=== PATIENT | male | born 2000 | race Caucasian/White ===

== ENCOUNTER 2023-02-25 21:02 | Emergency (ER) | payer OTHER, MEDICAID, SELFPAY ==
--- NOTE | ~2023-02-25 | XR_ITS ---
EXAMINATION: XR FOOT, LEFT CLINICAL INFORMATION: Injury. COMPARISON: None available. TECHNIQUE: AP, lateral, and oblique views of the left foot. FINDINGS: No acute fractures or malalignment. No significant soft tissue abnormality. No unexpected radiopaque foreign bodies. XR/XR foot LT min 3V IMPRESSION: No acute fractures or malalignment.
[2023-02-25 21:18] VITALS: BP 113/71; PULSE 88; RESP 16; TEMP 36.8; O2SAT 99; BMI 22.8
[2023-02-25 21:35] VITALS: BP 118/64; PULSE 83; RESP 17; TEMP 37.1; O2SAT 98
--- NOTE | 2023-02-25 23:11 | ED_ITS ---
HPI - Extremity Injury (Lower) General Chief Complaint: Extremity Injury, Lower Stated Complaint: Left ankle pain Time Seen by Provider: 02/25/23 21:59 Source: patient Mode of arrival: ambulatory Limitations: no limitations History of Present Illness HPI Narrative: This is a 22-year-old male presenting with complaints of left ankle pain and swelling, patient reports earlier today he was walking and he felt like his ankle went out of place, dislocated and since then has been having pain, swelling, worse with weight-bearing and ambulation better at rest. Range of motion also seems to precipitate pain. Patient denies numbness and tingling, fevers and chills, blunt trauma. Patient did not fall to the ground. No other injury sustained Related Data Allergies Allergy/AdvReac Type Severity Reaction Status Date / Time Unable to Assess Allergy Unverified 02/25/23 22:42 Review of Systems Review of Systems: Constitutional : No Weight loss, No Fever, No Chills, No Fatigue, No Malaise ENT/Mouth : No sore throat, No Rhinorrhea Eyes: No Eye Pain, No Swelling, No Redness Cardiovascular : No Chest Pain, No SOB, No Dyspnea on Exertion, No Orthopnea, No Edema, No Palpitations Respiratory : No Cough, No Sputum, No Wheezing Gastrointestinal : No Nausea, No Vomiting, No Diarrhea, No Constipation, No abdominal Pain, No Hematochezia, No Melena Genitourinary : No Dysuria, No Urinary Frequency, No Hematuria, Musculoskeletal : + joint pain, No Myalgias, + Joint Swelling Skin : No Skin Lesions, No rash Neuro : No Weakness, No Numbness, No Dizziness, No Headache Psych : No Anxiety/Panic, No Depression All other systems reviewed and are negative Yes all other systems are reviewed and are negative [facility] Past Medical History Attestation statement: The following information was validated with the patient. Source: old records reviewed and nursing notes reviewed Social History Social History Advance Directives: No Advance Directives Information Provided: No Physical Exam Vital Signs: Vital Signs: Last Vital Signs Temp 98.7 F 02/25/23 21:35 Pulse 83 02/25/23 21:35 Resp 17 02/25/23 21:35 BP 118/64 02/25/23 21:35 Pulse Ox 98 02/25/23 21:35 O2 Del Method Room Air 02/25/23 21:35 BMI result Body Mass Index 22.8 Vital signs stable Appearance: Alert.? Oriented X3.? No acute distress.? Head: Normocephalic, atraumatic, no step-offs or deformities Eyes: Pupils equal, round and reactive to light.? ENT: Pharynx normal.? Neck: Normal inspection.? Neck supple.? CVS: Normal heart rate and rhythm.? Pulses normal.? Respiratory: No respiratory distress.? Breath sounds normal.? Abdomen: Soft and nontender.? Skin: Skin warm and dry.? Normal skin color.? Normal skin turgor.? Extremities: No lower extremity edema.? No calf ttp. 5/5 strength to bilateral upper and lower extremities 2+ dorsalis pedis, anterior tibialis and posterior tibialis pulses equal bilateral. There is some discomfort with range of motion of left ankle however patient full range of motion to bilateral ankles. No foot drop. Normal sensation distally. Capillary refill less than 2 seconds of bilateral lower extremity toes. No step offs or deformities. Ambulating w/ limp favoring right lower extremity. Neuro: Oriented X 3.? No motor deficit.? No sensory deficit. CN 2-12 intact Course Reevaluation(s) Reevaluation #1: X-ray no acute fractures or malalignment. Patient without allergies will give IM Toradol here for pain will discharge home on same. Will give him an Aircast, crutches and have him follow-up with orthopedics. Educated patient on diagnosis and treatment plan, answered all question, patient verbalizes understanding. At this time patient will be discharged home, advised to return with new or worsening symptoms. Educated on worrisome signs and symptoms and when to return. At this time I feel comfortable discharge home. Time: 23:14 Medical Decision Making Medical Decision Making MDM Narrative: 22-year-old male presents status post rolling his ankle earlier today. Reports pain, swelling. Worse with movement, range of motion and weight-bearing better at rest Physical exam significant for No lower extremity edema.? No calf ttp. 5/5 strength to bilateral upper and lower extremities 2+ dorsalis pedis, anterior tibialis and posterior tibialis pulses equal bilateral. There is some discomfort with range of motion of left ankle however patient full range of motion to bilateral ankles. No foot drop. Normal sensation distally. Capillary refill less than 2 seconds of bilateral lower extremity toes. No step offs or deformities. Ambulating w/ limp favoring right lower extremity. Likely sprain or strain, no signs of neurovascular compromise, threat to [place], septic joint. No distracting injuries, unlikely fracture, dislocation. Plan x-rays Differential Diagnosis Differential Diagnoses: The differential diagnosis associated with the presentation includes Likely sprain or strain, no signs of neurovascular compromise, threat to [place], septic joint. No distracting injuries, unlikely fracture, dislocation. Admission/Observation Consideration of admission/observation: Escalation of care including admission/observation considered No indication Independent Interpretation I performed an independent interpretation of an: Plain X-Ray (XR/XR foot LT min 3V IMPRESSION: No acute fractures or malalignment. ) Radiology Impression Discussion of test interpretation with radiology: I have reviewed the radiologi st's reading. Core Measures AMI core measures followed: Yes Measure exclusions: not indicated Discharge Plan Discharge Clinical Impression: Left ankle sprain Patient Disposition: Home, Self-Care Instructions: Ankle Sprain (ED), Crutch Instructions (ED), R.I.C.E. Treatment (ED) Additional Instructions: Take your medications as prescribed. If you were prescribed antibiotics today, it is important that you take your medication to their entirety, do not skip any doses, do not finish them early. Follow-up with your primary care provider this week. Follow up with the orthopedic team Return to the emergency department with new or worsening symptoms. Such as fevers, chills, chest pain, shortness of breath, nausea, vomiting, dizziness, headache, vision changes, lethargy In case of emergency call 911 XR/XR foot LT min 3V IMPRESSION: No acute fractures or malalignment. ? Toradol has been sent to your pharmacy, you tolerated this well in the department. Please take this as prescribed do not take this with ibuprofen, or other NSAIDs, do not mix this with alcohol. Side effects of this medication including increased risk for bleeding and possible kidney injury. Referrals: [facility] Orth[facility] Surgeons [Provider Group] - 2 days Physician,None [Primary Care Provider] - 2 days
[2023-02-25] MEDS: Ketorolac Tromethamine 15 MG/ML VIAL 30 MG IM (23:26)
== END 2023-02-25 23:47 | disposition home or self-care (01) ==
PROVIDERS: Emergency Provider Emergency Medicine
DX: S93.402A Sprain of unspecified ligament of left ankle, initial encounter (principal); X50.1XXA Overexertion from prolonged static or awkward postures, initial encounter; Y93.01 Activity, walking, marching and hiking; Y92.410 Unspecified street and highway as the place of occurrence of the external cause; Y99.9 Unspecified external cause status
CPT/HCPCS: 73630; 96372; 99283; 99284; J1885

== ENCOUNTER 2023-11-09 21:40 | Emergency (ER) | payer OTHER, MEDICAID, SELFPAY ==
--- NOTE | ~2023-11-09 | XR_ITS ---
EXAMINATION: XR CHEST CLINICAL INFORMATION: Fever COMPARISON: None available. TECHNIQUE: Frontal view of the chest was obtained. FINDINGS: The lungs are clear with no focal consolidation. No evidence of pneumothorax, pulmonary edema, or pleural effusions. The cardiomediastinal silhouette is unremarkable. No acute osseous findings. XR/XR chest 1V IMPRESSION: No acute cardiopulmonary findings.
[2023-11-09 22:28] VITALS: BP 109/64; PULSE 115; RESP 20; TEMP 37.8; O2SAT 99; BMI 25.2
--- NOTE | 2023-11-09 23:02 | MHC.EDTECH ---
Patient rsv/covid swab collected and sent to lab .
[2023-11-09 23:41] LABS: Influenza A PCR NEGATIVE (Negative); Influenza B PCR NEGATIVE (Negative); Resp Syncy Virus RNA Qual PCR NEGATIVE (Negative); SARS COV2 PCR INHOUSE NEGATIVE (Negative)
[2023-11-10 01:58] VITALS: BP 112/60; PULSE 106; RESP 16; TEMP 38; O2SAT 98
[2023-11-10 02:36] LABS: IDNOW Serial# 08D9AD1C; Strep A Nucleic Acid Negative (Negative)
--- NOTE | 2023-11-10 02:39 | ED_ITS ---
HPI - Fever General Chief Complaint: Fever Stated Complaint: fever Time Seen by Provider: 11/10/23 02:15 Source: patient Mode of arrival: ambulatory Limitations: no limitations History of Present Illness HPI Narrative: 23-year-old male came in for evaluation of fever, chills, generalized body ache, runny nose with congestion and coughing. No sick contacts, no recent travel. Related Data Allergies Allergy/AdvReac Type Severity Reaction Status Date / Time No Known Allergies Allergy Verified 11/09/23 22:30 Review of Systems Review of Systems: All other systems are reviewed and are negative Constitutional: Reports as per HPI and Reports no additional constitutional complaints Eyes: Reports as per HPI and Reports no additional eye complaints Reports system reviewed and no additional complaints, except as documented Cardiovascular: Reports as per HPI and Reports no additional cardiovascular complaints Respiratory: Reports as per HPI and Reports no additional respiratory complaints Gastrointestinal: Reports as per HPI and Reports no additional gastrointestinal complaints Genitourinary: Reports no additional female genitourinary complaints Musculoskeletal: Reports no additional musculoskeletal complaints Skin/Breast: Reports system reviewed and no additional complaints, except as docu Psychiatric: Reports no additional psychiatric complaints Endocrine: Reports no additional endocrine complaints Hematologic/Lymphatic: Reports no additional hematologic/lymphatic complaints Allergic/Immunologic: Reports no additional allergic/immunologic complaints Reports system reviewed and no additional complaints, except as documented and Reports Abnormal speech present [facility] Social History Social History Advance Directives: No Advance Directives Information Provided: Yes Physical Exam 2 Vital Signs: Vital Signs: Last Vital Signs Temp 100.4 F 11/10/23 01:58 Pulse 106 H 11/10/23 01:58 Resp 16 11/10/23 01:58 BP 112/60 11/10/23 01:58 Pulse Ox 98 11/10/23 01:58 O2 Del Method Room Air 11/10/23 01:58 BMI result Body Mass Index 25.2 Vital signs have been reviewed and appear to be correct. Blood pressure elevated. Heart rate slightly elevated. Respiratory rate normal. Temperature normal. Oxygen saturation normal. Appearance: Alert. Oriented X3. No acute distress. Head: Normal external exam. Normocephalic. Atraumatic. No [place] signs noted. No raccoon eyes noted Eyes: PERRLA. EOMI. Conjunctiva and sclera normal. Eyelids normal. ENT: TM's Normal. Pharynx normal. Uvula midline. Moist mucous membranes. No trismus noted. No drooling noted. No muffled voice noted. Neck: Normal inspection. Neck supple. FROM. No adenopathy. Thyroid Normal. No meningeal signs. No neck mass noted. CVS: Normal heart rate and rhythm. Heart sound normal. No murmurs noted. Pulses normal throughout. Respiratory: No respiratory distress. Painless inspiration. Breath sounds normal. No wheezes/rales/rhonchi noted. Chest nontender. No accessory muscle usage noted or decreased air movement noted. Abdomen: Soft and nontender. Bowel sounds normal in all 4 quadrants. No distention noted. No organomegaly noted. No visible injury noted. Back: No CVA tenderness. Full range of motion noted. Skin: Skin warm and dry. Normal skin color. Normal skin turgor. No rashes/lesions/lacerations noted. Extremities: No lower extremity edema. Extremities exhibit normal range of motion. Extremities nontender. Neuro: Oriented X 3. Cranial nerve exam: II-XII are grossly intact No motor deficit. No sensory deficit. Reflexes normal. Course Reevaluation(s) Reevaluation #1: Upper respiratory symptoms with fever and chills with generalized body ache, negative chest x-ray, negative for upper respiratory viral infection, no strep throat infection. Will recommend Tylenol/NSAIDs for fever, drink plenty of fluids. Time: 02:42 Medical Decision Making Differential Diagnosis Differential Diagnoses: The differential diagnosis associated with the presentation includes (Pneumonia, strep pharyngitis, viral upper respiratory infection.) Admission/Observation Consideration of admission/observation: Escalation of care including admission/observation considered Lab Data [facility] Lab Attestation statement: I reviewed the patient's lab results. Labs: Lab Results 11/09/23 11/10/23 Range/Units 23:00 02:23 Influenza Type A (PCR) NEGATIVE (Negative) Influenza Type B (PCR) NEGATIVE (Negative) RSV RNA Qual (PCR) NEGATIVE (Negative) SARS-CoV-2 RNA (RT-PCR) NEGATIVE (Negative) S. pyogenes GrpA GAIL Negative (Negative) Independent Interpretation I performed an independent interpretation of an: Plain X-Ray (Chest: No acute intrathoracic pathology.) Radiology Impression Discussion of test interpretation with radiology: I have reviewed the radiologist's reading. Chronic Conditions Patient?s care impacted by: Other (Multiple sclerosis.) Discharge Plan Discharge Clinical Impression: Viral infection Patient Disposition: Home, Self-Care Instructions: Viral Syndrome (ED) Additional Instructions: Take [id number] Tylenol 500 mg every 6 hours if needed for pain or fever you can alternate with ibuprofen 200 mg tablet every 6 hours if needed for fever. Stand Alone Forms: Work/School Release Print Language: Kiswahili
[2023-11-10] MEDS: Ibuprofen 800 MG TABLET PO (03:22)
== END 2023-11-10 04:38 | disposition home or self-care (01) ==
PROVIDERS: Emergency Provider Emergency Medicine
DX: B34.9 Viral infection, unspecified (principal)
CPT/HCPCS: 0241U; 71045; 87651; 99283

== ENCOUNTER 2024-06-28 10:06 | Outpatient (AMB) | payer OTHER, SELFPAY ==
--- NOTE | 2024-06-28 10:13 | AM.OFFWIN_ITS ---
Intake Vital Signs 06/28/24 10:24 Height 5 ft 8 in Weight 164 lb BMI 24.9 BP 120/82 Pulse 122 H Pulse Source Pulse Oximeter Temp 99.4 F Temp Source Oral Pulse Oximetry (%) 98 Oxygen Delivery Method Room Air Intake Visit Reasons: REGULATORY MANAGER Fever, Body ache Intake Note: Patient here for high fevers, body pain and also had a fall yesterday on stairs and has severe pain. Patient Tobacco Use Status: Never used Tobacco Allergies No Known Allergies Allergy (Verified 06/28/24 10:26) Do you need a note to return to daycare/school/sports/work: Yes HPI REGULATORY MANAGER Fever, Body ache HPI Details This note is constructed using voice recognition software. While every effort has been made to ensure accuracy, aquatic laborer errors may have been inc luded. The patient is a 23 year old male with history of MS who presents to the clinic today with headache, sore throat, body ache, and a fall yesterday with inability to feel his hands. He reports that the pain is in his mid to lower back, and reports it to be ?severe?. Typically he does not have any difficulty with ambulation, however after the fall he has had some difficulty and required some additional assistance. He presents today with his brother and his sister, who are providing assistance and translation as needed. He reports that he 1st fell ill, went to get a plate of food, and then had a fall. He is not tested for anything, feels that he has a high fever, but did not check his temperature. He has not taken anything to make himself feel better. He and his siblings lexii rangel to come to the walk-in, as it was closer to home, and did not involve driving all the way to the emergency room, however they request transport to the emergency room. [facility] Social History Patient Tobacco Use Status: Never used Tobacco Review of Systems Const All systems reviewed & are unremarkable except as noted in HPI and below Physical Exam Vital Signs: Last Vital Signs Temp 99.4 F 06/28/24 10:24 Pulse 122 H 06/28/24 10:24 BP 120/82 06/28/24 10:24 Pulse Ox 98 06/28/24 10:24 Oxygen Delivery Method Room Air 06/28/24 10:24 BMI result Body Mass Index 24.9 Const Other: Patient minimally verbal at this time, per family this is abnormal. General: cooperative, no acute distress and well developed HEENT Head: Yes normal to inspection Ears: hearing grossly normal bilaterally General nose exam: Normal external nose present Face and sinus: Yes normal facial exam Eyes General: appearance normal, both eyes and all related structures Neck Neck: Yes normal visual inspection and Yes full ROM Resp Effort & Inspection: normal respiratory effort Auscultation: clear to auscultation bilaterally Cardio Rate: regular rate Rhythm: regular rhythm Heart sounds: normal S1 and S2 Back/Spine/Pelvis Other: Pt declines back exam/turning on bed to examine due to pain. Hand grasps equal bilateral and strong. Strength 5/5 x 4 extremities. No nuchal rigidity. Skin General skin exam: no rashes or lesions noted Extrem General: Yes normal to inspection Assessment & Plan Assessment & Plan (1) Back pain: Code(s): M54.9 - Dorsalgia, unspecified Qualifiers: Back pain location: low back pain Chronicity: acute Back pain laterality: midline Sciatica presence: without sciatica Qualified Code(s): M54.50 - Low back pain, unspecified Plan: Likely related to recent fall, however unable to determine with history of MS if this is contributing to the worsening pain. Given extent of pain, transferred to the emergency room pending. (2) Multiple sclerosis: Code(s): G35 - Multiple sclerosis Plan: Chronic history, with typical full mobility, now with increased pain, difficulty with ambulation after a fall. (3) Fever: Code(s): R50.9 - Fever, unspecified Qualifiers: Fever type: unspecified Qualified Code(s): R50.9 - Fever, unspecified Plan: Likely URI, however testing not performed today as patient is pending transport to the emergency room. (4) Bilateral hand numbness: Code(s): R20.0 - Anesthesia of skin Plan: Etiology unclear. Patient's fall involves pain to the lower back, however does have history of MS. Given symptoms, patient is pending transfer to the emergency room for thorough evaluation. Plan See above for full details and plan. Coding Level of Care Code New Pt Level 4 (72092) Diagnoses Acute midline low back pain without sciatica M54.50 Back pain location: low back pain Chronicity: acute Back pain laterality: midline Sciatica presence: without sciatica Multiple sclerosis G35 Fever, unspecified fever cause R50.9 Fever type: unspecified Bilateral hand numbness R20.0
[2024-06-28 10:24] VITALS: BP 120/82; PULSE 122; TEMP 37.4; O2SAT 98; BMI 24.9
== END 2024-06-28 11:30 | disposition home or self-care (01) ==
PROVIDERS: Visit Provider Registered Nurse
DX: M54.50 Low back pain, unspecified (principal); G35 Multiple sclerosis; R50.9 Fever, unspecified; R20.0 Anesthesia of skin

== ENCOUNTER → 2024-06-28 10:06 | Outpatient (BNVA) | payer OTHER, SELFPAY | PROVIDERS: Visit Provider Registered Nurse ==

== ENCOUNTER 2024-06-28 11:29 | Emergency (ER) | payer OTHER, SELFPAY ==
[2024-06-28] VITALS (7 sets, daily range): BP systolic 94–144; BP diastolic 45–88; PULSE 100–124; RESP 16–18; TEMP 37–39.4; O2SAT 95–99; BMI 26.9
--- NOTE | ~2024-06-28 | XR_ITS ---
EXAMINATION: XR THORACIC SPINE CLINICAL INFORMATION: low back pain s/p fall COMPARISON: None available. TECHNIQUE: 3 views of the thoracic spine were obtained. FINDINGS: No scoliosis. Normal kyphosis. Normal bone mineralization. No fracture, dislocation, subluxation, or suspicious bone lesion. No compression deformity. Disc spaces are preserved. Alignment is anatomic. Facets are normally aligned. No soft tissue abnormalities. Imaged lungs clear. XR/XR thoracic spine 3V IMPRESSION: No acute findings thoracic spine. Electronically signed by: Gagan Taveras MD 06/28/2024 01:59 PM EST
--- NOTE | ~2024-06-28 | XR_ITS ---
EXAMINATION: XR CHEST CLINICAL INFORMATION: fever COMPARISON: 11/10/2023. TECHNIQUE: Frontal view of the chest was obtained. FINDINGS: Cardiac, hilar, and mediastinal contours are normal. Lungs are clear bilaterally. There is no osseous or soft tissue abnormality. XR/XR chest 1V IMPRESSION: Normal chest. Electronically signed by: Gagan Taveras MD 06/28/2024 01:56 PM [facility]
--- NOTE | ~2024-06-28 | XR_ITS ---
EXAMINATION: XR LUMBOSACRAL SPINE CLINICAL INFORMATION: low back pain s/p fall COMPARISON: None available. TECHNIQUE: Three views of the lumbosacral spine. FINDINGS: Trace levoconvex scoliosis, possibly positional. Normal lordosis. Normal bone mineralization. No fracture, dislocation, subluxation, or suspicious bone lesion. Disc spaces are preserved. Alignment is anatomic. Facets are normally aligned. Imaged sacrum and SI joints appear normal. No soft tissue abnormalities. XR/XR lumbar spine 2-3V IMPRESSION: Essentially normal radiographs lumbar spine. Electronically signed by: Gagan Taveras MD 06/28/2024 01:58 PM [facility]
--- NOTE | 2024-06-28 11:56 | ECG_ITS ---
Test Reason : Fall Blood Pressure : / mmHG Vent. Rate : 123 BPM Atrial Rate : 123 BPM P-R Int : 170 ms QRS Dur : 082 ms QT Int : 278 ms P-R-T Axes : 052 055 038 degrees QTc Int : 398 ms Sinus tachycardia Nonspecific T wave abnormality Abnormal ECG No previous ECGs available Referred By: Leslie Will Electronically Signed By:David Hilliard
--- NOTE | 2024-06-28 12:08 | ED_ITS ---
HPI - Fever General Chief Complaint: Fever Stated Complaint: HIGH FEVER,FALL T-1,DIZZY PER EMS Time Seen by Provider: 06/28/24 11:46 Source: patient, family, EMS, RN notes reviewed and old records reviewed Mode of arrival: EMS History of Present Illness ED Provider: Leslie Will PA-C HPI Narrative: 23-year-old male Tajik speaking with a past medical history of MS presenting to the ED via EMS from urgent care complaining of headache, myalgias, fever, cough, and back pain s/p mechanical trip and fall yesterday. Patient states he started feeling unwell yesterday and then had mechanical trip and fall on 3 steps landing on knee, denies head trauma or LOC. Denies direct back injury. States after fall felt fine and later developed back pain, nonradiating. Does report paresthesias to hands/feet. Denies CP/SOB, abdominal pain, nausea/vomiting, dysuria/hematuria, incontinence/retention, travel. Does admit to sick contacts at work. Denies taking any medication today Related Data Allergies Allergy/AdvReac Type Severity Reaction Status Date / Time No Known Allergies Allergy Verified 06/28/24 11:55 Review of Systems 2 Review of Systems: Yes all other systems are reviewed and are negative Constitutional: Constitutional: Reports as per HPI Neurologic: Denies Abnormal speech present [facility] Past Medical History Attestation statement: The following information was validated with the patient. Source: old records reviewed Social History Social History Patient Tobacco Use Status: Never used Tobacco Smoked in Last 30 Days: No Use of substances other than those prescribed or required for medical reasons: No Advance Directives: No Advance Directives Information Provided: Yes Do you have a plan to hurt others: No Plan Physical Exam 2 Vital Signs: Vital Signs: Last Vital Signs Temp 99.5 F 06/28/24 14:11 Pulse 107 H 06/28/24 14:33 Resp 17 06/28/24 14:33 BP 97/48 L 06/28/24 14:33 Pulse Ox 98 06/28/24 14:33 O2 Del Method Room Air 06/28/24 14:33 BMI result Body Mass Index 26.9 Const: General: cooperative, healthy appearing and no acute distress O rientation/consciousness: patient oriented x3 Limitations: no limitations HEENT: Head: Yes normal to inspection and Yes atraumatic Ears: hearing grossly normal bilaterally General nose exam: Normal external nose present Face and sinus: Yes normal facial exam Mouth: Normal oral and palatal mucosa present and no drooling Throat: Yes posterior oropharynx normal, Yes tonsils normal and Yes uvula midline Eyes: General: appearance normal, both eyes and all related structures P upils: Equal, round and reactive pupils present EOM: EOMs intact bilaterally Neck: Neck: Yes normal visual inspection and Yes no meningeal signs Resp: Effort & Inspection: normal respiratory effort and no respiratory distress Auscultation: clear to auscultation bilaterally, no crackles and no wheezes Cardio: Rate: regular rate Heart sounds: S1 normal heart sound present and S2 normal heart sound present GI: Inspection: Yes normal to inspection Palpation (GI): Soft to palpation, nontender, no guarding and not rigid : General: Yes no CVA tenderness Back/Spine/Pelvis: Other: No midline cervical/thoracic/lumbar spinous tenderness/step-off or deformity. Back pain not reproducible on exam. No erythema/ecchymosis or flail chest Back: no CVA tenderness Skin: Rashes: no rashes Wounds: no wounds Neuro: General: patient oriented x3, tone normal, moves all extremities, no meningeal signs, no focal motor deficits and CN's II-XI intact bilaterally C ranial nerves: Yes CN's II-XII intact bilaterally, Yes Equal, round and reactive pupils present and Yes Bilaterally intact EOM present Cognition (Neuro): n ormal cognition Speech: No Abnormal speech present Gait exam (Neuro): N ormal gait present Motor exam (neuro): 5/5 motor strength present throughout Extrem: General: Yes normal to inspection Course Course Course Narrative: -1412--no leukocytosis. Labs otherwise reassuring. Troponin negative. -COVID-19 positive XR chest 1V IMPRESSION: Normal chest. XR lumbar spine 2-3V IMPRESSION: Essentially normal radiographs lumbar spine. No acute findings thoracic spine. XR lumbar spine 2-3V IMPRESSION: Essentially normal radiographs lumbar spine. > no indication of sepsis at this time, viral etiology confirmed as suspected -on re-evaluation patient reports symptomatic improvement. Well-appearing. Ambulated in the ED with steady gait without difficulty. Feels safe for discharge home at this time. Results discussed with patient including worrisome signs and symptoms and strict return precautions, and when to return to the emergency department. They verbalized understanding and feel safe for discharge at this time. Medications Administered Discontinued Medications Generic Name Dose Route Start Last Admin Trade Name Timothy PRN Reason Stop Dose Admin Acetaminophen 975 mg 06/28/24 12:06 06/28/24 12:16 Acetaminophen 325 Mg Tablet PO 06/28/24 12:07 975 mg ONCE ONE Administration Ceftriaxone Sodium 1 gm 06/28/24 12:06 06/28/24 12:15 Ceftriaxone Sodium 1 Gm Vial IVPUSH 06/28/24 12:07 1 gm ONCE ONE Administration Sodium Chloride 1,000 mls @ 999 mls/hr 06/28/24 12:15 06/28/24 13:54 Ns IV 06/28/24 13:15 Infused .Q1H1M DELMI Infusion Sodium Chloride 1,000 mls @ 999 mls/hr 06/28/24 12:30 06/28/24 13:54 Ns IV 06/28/24 13:30 Infused .Q1H1M DELMI Infusion Sodium Chloride 1,000 mls @ 999 mls/hr 06/28/24 14:00 06/28/24 14:33 Ns IV 06/28/24 15:00 Infused .Q1H1M DELMI Infusion Medical Decision Making Medical Decision Making MDM Narrative: 23-year-old male Tajik speaking with a past medical history of MS presenting to the ED via EMS from urgent care complaining of headache, myalgias, fever, cough, and back pain s/p mechanical trip and fall yesterday. On exam febrile, tachycardic likely from fever, NAD/nontoxic appearing, no midline spinous tenderness throughout or red flag symptoms. No focal neuro deficits. Back pain not reproducible. Lungs CTA. Concern for viral illness vs MSK back pain/strain. Rule out pneumonia/other infectious etiology. Low suspicion for fracture, cauda equina/cord compression, intra-abdominal pathology, epidural abscess. MS flare on differential. Plan: EKG, labs, UA, CXR, viral studies, rapid strep, IVF, empiric IV antibiotics, re-evaluate Please refer to course for remaining clinical decision making, interpretation of labs/imaging results, and discussions with consultants and/or family members. Differential Diagnosis Differential Diagnoses: The differential diagnosis associated with the presentation includes As above Admission/Observation Consideration of admission/observation: Escalation of care including admission/observation considered Consult Healthcare Provider Management of the patient was discussed with: Hospitalist Lab Data MDM Lab Attestation statement: I reviewed the patient's lab results. 06/28/24 12:12 06/28/24 12:12 Labs: Lab Results 06/28/24 06/28/24 Range/Units 12:12 12:14 WBC 5.9 (4.8-10.8) X10*3/uL RBC 5.11 (4.60-5.80) X10*6/uL Hgb 14.9 (14.0-18.0) g/dl Hct 43.6 (42.0-52.0) % MCV 85.3 (80.0-98.0) fL MCH 29.2 (27.0-33.0) pg MCHC 34.2 (31.0-36.0) g/dl RDW 13.2 (11.0-16.0) % Plt Count 213 (160-400) X10*3/uL MPV 10.9 (9.4-12.4) fL Immature Gran % (Auto) 0.3 (0.0-0.4) % Neut % (Auto) 78.4 H (45-73) % Lymph % (Auto) 9.1 L (20-40) % Callaway % (Auto) 11.8 H (2-11) % Eos % (Auto) 0.2 (0-4) % Baso % (Auto) 0.2 (0-2) % Lymph # (Auto) 0.5 L (1.2-4.9) X10*3/uL Callaway # (Auto) 0.7 (0.1-1.2) X10*3/uL Eos # (Auto) 0.0 (0.0-0.4) X10*3/uL Baso # (Auto) 0.0 (0.0-0.2) X10*3/uL Abs Immat Gran (auto) 0.02 (0.00-0.03) X10*3/uL Absolute Neuts (auto) 4.6 (2.0-8.3) x10*3/uL Absolute Nucleated RBC 0.000 (0.0-0.012) X10*3/uL Nucleated RBC % (auto) 0.0 (0.0-0.2) /100WBC PT 13.9 H (10.9-12.4) SEC INR 1.2 H (0.9-1.1) Sodium 141 (135-145) mmol/L Potassium 3.6 (3.3-5.1) mmol/L Chloride 106 (96-108) mmol/L Carbon Dioxide 26 (22-29) mmol/L Anion Gap 13 (12-20) BUN 11 (9-16) mg/dL Creatinine 0.90 (0.5-1.4) mg/dL Estim Creat Clear Calc 125.6 Estimated GFR > 60 Random Glucose 99 (60-115) mg/dL Lactic Acid 1.3 (0.5-2.0) mmol/L Calcium 8.9 (8.4-10.2) mg/dL Magnesium 1.7 (1.6-2.6) mg/dL Total Bilirubin 0.8 (0.0-1.0) mg/dL AST 30 (5-37) U/L ALT 47 H (0-40) U/L Alkaline Phosphatase 86 (39-117) U/L Troponin I High Sens < 2.7 (<3.5-35.0) ng/L Total Protein 7.4 (6.5-8.0) g/dL Albumin 4.4 (3.5-5.0) g/dL Influenza Type A (PCR) NEGATIVE (Negative) Influenza Type B (PCR) NEGATIVE (Negative) RSV RNA Qual (PCR) NEGATIVE (Negative) SARS-CoV-2 RNA (RT-PCR) POSITIVE A (Negative) S. pyogenes GrpA GAIL Negative (Negative) Independent Interpretation I performed an independent interpretation of an: EKG and Plain X-Ray Radiology Impression Discussion of test interpretation with radiology: I have reviewed the radiologist's reading. Independent Historian Clinical information obtained from an independent historian. History obtained from or confirmed by: EMS and Other (siblings) External Record Review External record reviewed: Inpatient record, Office record, Outpatient record, Prior outpatient labs, Prior outpatient radiology, Primary care record and Outside ED record Tests considered The following testing was considered but not selected: As above Prescription Management I considered prescription management with: Pain Medication and Antibiotic Chronic Conditions Patient?s care impacted by: Other (MS) Social Determinants Patient?s care significantly limited by Social Determinants of Health including: Other Social Determinant of Health Discharge Plan Discharge Clinical Impression: COVID-19 Patient Disposition: Still a Patient Instructions: COVID-19 (Coronavirus Disease 2019) (ED) Additional Instructions: YOU HAVE COVID-19 At this time you will be okay for discharge. Please self isolate for 5 days. Do not expose yourself to others. You may not go to work or school. Please continue to follow cold instructions and wash your hands frequently. You may take Tylenol / Motrin as directed on the bottle for pain or fever. If you have constant or persistent shortness of breath, fever unresolved with medications, chest pain, or your unable to eat or drink please return to the ED CDC Guidelines for home isolation: - Stay away from others - WEAR A MASK if you are sick AND STAY HOME - Cover your mouth and nose with a tissue when you cough or sneeze. Dispose of tissues in a lined trash can and wash your hands immediately with soap and water for at least 20 seconds. If soap and water are not available, clean hands with alcohol-based hand finisher screwdown that contains at least 60% alcohol. - Clean your hands often with soap and water for at least 20 seconds - Avoid touching your eyes, nose and mouth with unwashed hands - Do not share dishes, drinking glasses, cups, eating utensils, towels, or bedding with other people in your home. After using these items, wash them thoroughly with soap and water or put in the tank truck milk receiver. - Clean high-touch surfaces in your isolation area ( sick room and bathroom) every day; let a caregiver clean and disinfect high-touch surfaces in other areas of the home. Clean the area or item with soap and water or another detergent if it is dirty. Then, use a household disinfectant. - Limit contact with pets and animals: If you must care for a pet, wash your hands before and after interacting with them) Referrals: Physician,Unknown J [Primary Care Provider] - 1 week Print Language: Tajik
[2024-06-28] MEDS: 0.9 % Sodium Chloride 1,000 ML 999 ML IV ×3 (12:11→13:59)
[2024-06-28] MEDS: cefTRIAXone sodium 1 GM VIAL IVPUSH (12:15)
[2024-06-28] MEDS: Acetaminophen 325 MG TABLET 975 MG PO (12:16)
[2024-06-28 12:25] LABS: MANUAL DIFF FLAG NO
[2024-06-28 12:29] LABS: Basophils Percent Auto 0.2 % (0-2); Eosinophils Percent Auto 0.2 % (0-4); Hematocrit 43.6 % (42.0-52.0); Hemoglobin 14.9 g/dl (14.0-18.0); Imm Gran Abs Auto 0.02 X10*3/uL (0.00-0.03); Imm Gran Pct Auto 0.3 % (0.0-0.4); Lymphocytes Absolute Auto 0.5 X10*3/uL (1.2-4.9); Lymphocytes Percent Auto 9.1 % (20-40); Mean Corpuscular HGB Conc 34.2 g/dl (31.0-36.0); Mean Corpuscular Hemoglobin 29.2 pg (27.0-33.0); Mean Corpuscular Volume 85.3 fL (80.0-98.0); Mean Platelet Volume 10.9 fL (9.4-12.4); Monocytes Absolute Auto 0.7 X10*3/uL (0.1-1.2); Monocytes Percent Auto 11.8 % (2-11); Neutrophils Absolute Auto 4.6 x10*3/uL (2.0-8.3); Neutrophils Percent Auto 78.4 % (45-73); Platelet Count 213 X10*3/uL (160-400); Red Blood Count 5.11 X10*6/uL (4.60-5.80); Red Cell Distribution Width 13.2 % (11.0-16.0); White Blood Count 5.9 X10*3/uL (4.8-10.8)
[2024-06-28 12:33] LABS: INTERNATIONAL NORM RATIO 1.2 (0.9-1.1); Prothrombin Time 13.9 SEC (10.9-12.4)
--- NOTE | 2024-06-28 12:34 | PC.NURSE ---
Pt presents to ED from home via EMS, has hx of MS. 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 Is still able to walk, move all extremities and urinate as normal. Also reports feeling sick since yesterday morning, noted to have oral fever of 103 here. Denies any SOB, cough, N/V/D. No head hit, LOC or blood thinner use. Alert and oriented, breathing even and unlabored, skin hot. Sinus tach on monitor. Sepsis alert called by provider and orders followed
[2024-06-28 12:41] LABS: IDNOW Serial# 08D9AD1C
[2024-06-28 12:42] LABS: Strep A Nucleic Acid Negative (Negative)
[2024-06-28 12:43] LABS: Lactic Acid 1.3 mmol/L (0.5-2.0)
[2024-06-28 12:44] LABS: Alanine Aminotransferase 47 U/L (0-40); Albumin Level 4.4 g/dL (3.5-5.0); Alkaline Phosphatase 86 U/L (39-117); Anion Gap 13 (12-20); Aspartate Amino Transferase 30 U/L (5-37); Bilirubin Total 0.8 mg/dL (0.0-1.0); Blood Urea Nitrogen 11 mg/dL (9-16); Calcium 8.9 mg/dL (8.4-10.2); Carbon Dioxide 26 mmol/L (22-29); Chloride 106 mmol/L (96-108); Creatinine Clr Calc Pharmacy 125.6; Estimated Glomerular Filt Rate > 60; Glucose Random 99 mg/dL (60-115); Magnesium 1.7 mg/dL (1.6-2.6); Potassium 3.6 mmol/L (3.3-5.1); Sodium 141 mmol/L (135-145); Total Protein 7.4 g/dL (6.5-8.0)
[2024-06-28 12:49] LABS: Troponin-I High Sensitivity < 2.7 ng/L (<3.5-35.0)
[2024-06-28 13:08] LABS: Influenza A PCR NEGATIVE (Negative); Influenza B PCR NEGATIVE (Negative); Resp Syncy Virus RNA Qual PCR NEGATIVE (Negative); SARS COV2 PCR INHOUSE POSITIVE (Negative)
--- NOTE | 2024-06-28 13:59 | PC.NURSE ---
Provider aware of BP, another liter of fluids started
== END 2024-06-28 15:28 | disposition home or self-care (01) ==
PROVIDERS: Physician Assistant; Emergency Provider Student in an Organized Health Care Education/Training Program
DX: U07.1 COVID-19 (principal); R50.9 Fever, unspecified; R05.9 Cough, unspecified; R79.1 Abnormal coagulation profile; G35 Multiple sclerosis
CPT/HCPCS: 0241U; 71045; 72072; 72100; 80053; 83605; 83735; 84484; 85025; 85610; 87040; 87651; 93005; 96361; 96374; 99284; 99285; J0696

== ENCOUNTER → 2024-06-28 11:56 | Outpatient (BNV) | payer OTHER, SELFPAY | PROVIDERS: Emergency Provider Student in an Organized Health Care Education/Training Program; Visit Provider Internal Medicine Cardiovascular Disease | DX: R00.0 Tachycardia, unspecified (principal); R94.31 Abnormal electrocardiogram [ECG] [EKG] | CPT/HCPCS: 93010 ==

== ENCOUNTER → 2024-06-28 12:06 | Outpatient (BNV) | payer OTHER, SELFPAY | PROVIDERS: Emergency Provider Student in an Organized Health Care Education/Training Program; Visit Provider Radiology Diagnostic Radiology | DX: M54.50 Low back pain, unspecified (principal); R50.9 Fever, unspecified | CPT/HCPCS: 71045; 72072; 72100 ==

== ENCOUNTER 2024-09-17 11:06 | Outpatient (AMB) | payer OTHER, SELFPAY ==
[2024-09-17 12:33] VITALS: BP 118/70; PULSE 102; TEMP 37.2; O2SAT 98
--- NOTE | 2024-09-17 12:33 | AM.OFFWIN_ITS ---
Intake Vital Signs 09/17/24 12:33 Height 5 ft 8 in BP 118/70 Blood Pressure Location Lt brachial Position Sitting Pulse 102 H Pulse Source Pulse Oximeter Temp 99.0 F Temp Source Oral Pulse Oximetry (%) 98 Intake Visit Reasons: EP Headache, cough, sore throat Intake Note: pt is here for cough, headache for weeks, and congestion Patient Tobacco Use Status: Never used Tobacco Allergies No Known Allergies Allergy (Verified 09/17/24 12:33) Do you need a note to return to daycare/school/sports/work: Yes HPI HPI Comments History of Present Illness Details 23 y/o male patient who presents to the walk in clinic with c/o URI symptoms x 3 days. He reports cough, fevers, Body aches and headaches. [facility] Medical History (Updated 09/17/24 @ 13:20 by Samra Cook NP) Cough Acute respiratory disease Social History Patient Tobacco Use Status: Never used Tobacco Review of Systems Const All systems reviewed & are unremarkable except as noted in HPI and below Physical Exam Vital Signs: Last Vital Signs Temp 99.0 F 09/17/24 12:33 Pulse 102 H 09/17/24 12:33 BP 118/70 09/17/24 12:33 Pulse Ox 98 09/17/24 12:33 Const General: cooperative and no acute distress Nutritional Appearance: obese Orientation/consciousness: patient oriented x3 HEENT Head: Yes normocephalic Ears: external ears normal and TM abnormal obstructed by cerumen bilateral General nose exam: Nasal discharge present Face and sinus: Yes sinuses nontender Mouth: moist mucous membranes Throat: Yes uvula midline Resp Effort & Inspection: normal respiratory effort, able to speak in complete sentences and Actively coughing Auscultation: clear to auscultation bilaterally, no crackles, no rales, no rhonchi and no wheezes Cardio Heart sounds: S1 normal heart sound present and S2 normal heart sound present Neuro General: patient oriented x3 Assessment & Plan Assessment & Plan (1) Acute respiratory disease: Code(s): J06.9 - Acute upper respiratory infection, unspecified Plan: Ordered SARs OTC cough medicines Acetaminophen for pain relief Rest and hydrate well. (2) Cough: Code(s): R05.9 - Cough, unspecified Qualifiers: Cough type: subacute Qualified Code(s): R05.2 - Subacute cough Plan: Ordered SARs OTC cough medicines Acetaminophen for pain relief Rest and hydrate well. Orders: Orders SARS-CoV2/FLU/RSV Today J06.9 - Acute upper respiratory infection, unspecified Medications: New benzonatate 100 mg PO TID 90 caps 0RF R05.9 - Cough, unspecified dextromethorphan polistirex ER ([facility] 12 hour) 10 mL PO Q12H 89 mL 0RF cough J06.9 - Acute upper respiratory infection, unspecified Coding Level of Care Code Est Pt Level 4 (26752) Diagnoses Acute respiratory disease J06.9 Subacute cough R05.2 Cough type: subacute Time Spent (min) 20
--- OUTSIDE RECORDS SUMMARY | 2024-09-17 12:44 | XMS_ITS | Referral Summary ---
Author Organization [facility] Address [address] [place] [address] Care Team Providers Care Adoption Manager Name Role Phone Alicia Lui MD Primary Care Provider [phone] Encounters Date Type Department Care Team Description 09/13/2024 11:00 AM EST Office Visit [facility] [address] [place] [phone] Manager Games: Sirena Salomon MD Multiple sclerosis ([facility]) (Primary Dx) 09/05/2024 8:30 AM EST Infusion [facility] [address] [place] [address] Shubham Arnold MD PhD Mago Henderson RN Multiple sclerosis ([facility]) (Primary Dx) from Last 3 Months Allergies No known active allergies Medications meclizine (ANTIVERT) 25 mg tablet Take 1 tablet (25 mg total) by mouth 3 times a day as needed for dizziness. 30 tablet 09/24/2022 Active cholecalciferol (VITAMIN D3) 2,000 unit capsule Take 1 capsule (2,000 Units total) by mouth once a day. 30 capsule 11 09/13/2024 Active Active Problems Problem Noted Date Diagnosed Date Multiple sclerosis 01/21/2023 Social History Tobacco Use Types Packs/Day Years Used Date Smoking Tobacco: Never Smokeless Tobacco: Never Tobacco Cessation:Counseling Given: Not Answered Sex and Gender Information Value Date Recorded Sex Assigned at Male 08/29/2024 4:37 PM EST Legal Sex Male 2:13 PM EST Gender Identity Male 08/29/2024 4:37 PM EST Sexual Orientation Straight 08/29/2024 4: 37 PM EST Last Filed Vital Signs Vital Sign Reading Time Taken Comments Blood Pressure 125/82 09/13/2024 11:01 AM EST Pulse 91 09/13/2024 11:01 AM EST Temperature 36.8 ??C (98.2 ??F) 09/05/2024 10:[address] Respiratory Rate 16 09/05/2024 10:03 AM EST Oxygen Saturation 98% 09/05/2024 10:03 AM EST Inhaled Oxygen Concentration - - Weight 78.7 kg (173 lb 6.3 oz) 09/05/2024 8:40 A M EST Height 172.7 cm (5' 8 ) 05/24/2024 11:46 AM EDT Body Mass Index 26.36 05/24/2024 11:46 AM EDT Plan of Treatment Upcoming Encounters Date Type Department Care Team (Late st Contact Info) Description 12/06/2024 11:00 AM EDT Office Visit [facility] [address] [place] [address] Manager Games: Sirena Salomon MD [address] [place] [address] 03/04/2025 8:30 AM EDT Infusion [facility] [address] [place] [address] Shubham Arnold MD PhD [address] [place] [address] Procedures * Due to [place] state law, this organization might not be sharing negative HIV tests. Procedure Name Priority Date/Time Associated Diagnosis Comments MRI THORACIC SPINE W WO CONTRAST Routine 06/18/2024 6:50 PM EST Multiple sclerosis (HCC) MRI BRAIN W WO CONTRAST Routine 06/18/2024 6:10 PM EST Multiple sclerosis (HCC) MRI CERVICAL SPINE W WO CONTRAST Routine 06/18/2024 5:30 PM EST Multiple sclerosis (HCC) HEPATITIS PANEL, ACUTE STAT 09/24/2022 4:24 PM EST from Last 3 Months or Most Recently Relevant to Health Maintenance Results * Due to [place] state law, this organization might not be sharing negative HIV tests. * MRI thoracic spine with and without contrast (06/18/2024 6:50 PM EST) Anatomical Region Laterality Modality Spine, T-spine Magnetic Resonan ce 06/18/2024 6:10 PM EST Impressions 06/20/2024 7:01 AM EST No change diffuse confluent T-2/flair hyperintense lesions scattered throughout the thoracic cord especially from T6 through T12. ??None of the lesions enhances following the administration of gadolinium. If this radiology report contains a blank impression section, it is an incomplete radiology report. ??Please contact the interpreting radiologist or applicable radiology division as soon as possible to obtain the completed interpretation. ? Workstation ID: [id number] Narrative 06/20/2024 7:01 AM EST EXAMINATION: MRI THORACIC SPINE W WO CONTRAST INDICATION: Multiple sclerosis - demyelinating disease, follow up TECHNIQUE: Imaging done on an 3 Nichelle magnet system. The sequences obtained include sagittal T-1, T-2 and ??STIR and axial T2. ??Following the administration of gadolinium, sagittal and axial T1-weighted images were performed. ?? Dose: 0.1 mmol per kilogram Dotarem COMPARISON: 12/16/2022. FINDINGS: No change diffuse confluent T-2/flair hyperintense lesions scattered throughout the thoracic cord especially from T6 through T12. ??None of the lesions enhances following the administration of gadolinium. There is anatomic alignment and no evidence of fracture or subluxation. Normal bone marrow signal is seen within the vertebral bodies. ??Disc spaces are maintained. The thoracic spinal canal is patent. ??There is no evidence of disc herniation or spinal stenosis. Resulting Agency Comment [id number] Procedure Note Domenico Pereira MD - 06/20/2024 EXAMINATION: MRI THORACIC SPINE W WO CONTRAST INDICATION: Multiple sclerosis - demyelinating disease, follow up TECHNIQUE: Imaging done on an 3 Nichelle magnet system. The sequences obtained includesagittal T-1, T-2 and STIR and axial T2. Following the administration ofgadolinium, sagittal and axial T1-weighted images were performed. Dose: 0.1 mmol per kilogram Dotarem COMPARISON: 12/16/2022. FINDINGS: No change diffuse confluent T-2/flair hyperintense lesions scatteredthroughout the thoracic cord especially from T6 through T12. None of thelesions enhances following the administration of gadolinium. There is anatomic alignment and no evidence of fracture or subluxation. Normal bone marrow signal is seen within the vertebral bodies. Discspaces are maintained. The thoracic spinal canal is patent. There is no evidence of discherniation or spinal stenosis. IMPRESSION: No change diffuse confluent T-2/flair hyperintense lesions scatteredthroughout the thoracic cord especially from T6 through T12. None of thelesions enhances following the administration of gadolinium. If this radiology report contains a blank impression section, it is anincomplete radiology report. Please contact the interpreting radiologistor applicable radiology division as soon as possible to obtain thecompleted interpretation. Workstation ID: [id number] us Shubham Arnold MD PhD IMG MRI PROCEDURES Minerva l Result * MRI Brain with and without Contrast (06/18/2024 6:10 PM EST) Anatomical Region Laterality Modality Head and Neck Magnetic Resonan ce 06/18/2024 5:30 PM EST Impressions 06/19/2024 11:45 PM EST Compared to the prior MRI of 12/18/2022, multiple new or enlarging white matter lesions, including those detailed above. No restricted diffusion or enhancing lesion. ??(Yellow alert) A(n) Yellow actionable finding has been communicated to the ordering or responsible provider via the [employer] [place] system on 06/19/2024. ??Receipt of this communication by the responsible provider will be documented in [employer] [place] upon receiving acknowledgement if applicable, Message ID [id number]. If this radiology report contains a blank impression section, it is an incomplete radiology report. ??Please contact the interpreting radiologist or applicable radiology division as soon as possible to obtain the completed interpretation. ? Workstation ID: [id number] Narrative 06/19/2024 11:45 PM EST MRI BRAIN WITH CONTRAST TECHNIQUE: MR images of the brain were acquired without and with standard dose intravenous contrast. CLINICAL INFORMATION: Age: 23 years, ??Gender: Male Demyelinating disease G35 - I10 - Multiple sclerosis - demyelinating disease, follow up COMPARISON: 12/18/2022 FINDINGS: Please note that on axial DWI, FLAIR, T2 FS, T1 images, the inferior aspect of the cerebellar hemispheres not entirely included in the [id number], more so on the right side. BRAIN PARENCHYMA New T2 hyperintense Lesions: right occipital periventricular lesion 4/15, posteromedial margin of the atrium of the left lateral ventricle 4/18, right forceps major 4/22, left posterior periventricular 4/25 Enlarging T2 hyperintense Lesions: anterior margin of the left frontal horn 4/24, superior margin of the right occipital horn 8/137 Enhancing Lesions: None. Reduced Diffusion: None. Overall Disease Bixby: No change in multiple periventricular, juxtacortical, and infratentorial white matter lesions compatible with known demyelinating disease. T1 Hypointensities (Black Holes): Present Parenchymal Atrophy: Mild. Callosal Atrophy: Mild. OTHER: Mucosal thickening in the visualized paranasal sinuses. Retention cysts in the maxillary sinuses. Resulting Agency Comment [id number] us Shubham Arnold MD PhD IMG MRI PROCEDURES Edit ed Result - Final * MRI cervical spine with and without contrast (06/18/2024 5:30 PM EST) Anatomical Region Laterality Modality Spine, C-spine Magnetic Resonan ce 06/18/2024 4:40 PM EST Impressions 06/20/2024 6:56 AM EST No change diffuse confluent T-2/flair hyperintensity throughout the cord from the ??craniocervical junction to the C6 level. ??None of the lesions enhances. ??No new lesions are seen. If this radiology report contains a blank impression section, it is an incomplete radiology report. ??Please contact the interpreting radiologist or applicable radiology division as soon as possible to obtain the completed interpretation. ? Workstation ID: [id number] Narrative 06/20/2024 6:56 AM EST EXAMINATION: MRI CERVICAL SPINE W WO CONTRAST INDICATION:Multiple sclerosis - demyelinating disease, follow up TECHNIQUE: MRI of the cervical spine without contrast was performed on a 3TGE Signa magnet system. Sequences obtained include sagittal T1, T2 and IR; axial T2 and proton density. ??Following the administration of standard dose gadolinium, T1 weighted sagittal and axial images were performed. COMPARISON: 12/18/2022 FINDINGS: No change diffuse confluent T-2/flair hyperintensity throughout the cord from the ??craniocervical junction to the C6 level. ??None of the lesions enhances. ??No new lesions are seen. There is anatomic alignment and no evidence of fracture or subluxation. Vertebral bodies demonstrate normal bone marrow signal. ?? The craniocervical junction is normal. The paraspinal soft tissues are unremarkable. There is mild narrowing of the C5-6 disc space. C2-C3: There is no significant neuroforaminal or spinal canal stenosis. C3-C4: There is no significant neuroforaminal or spinal canal stenosis. C4-C5: There is no significant neuroforaminal or spinal canal stenosis. C5-C6: There is no significant neuroforaminal or spinal canal stenosis. C6-C7: There is no significant neuroforaminal or spinal canal stenosis. C7-T1: There is no significant neuroforaminal or spinal canal stenosis. Resulting Agency Comment [id number] Procedure Note Domenico Pereira MD - 06/20/2024 EXAMINATION: MRI CERVICAL SPINE W WO CONTRAST INDICATION:Multiple sclerosis - demyelinating disease, follow up TECHNIQUE: MRI of the cervical spine without contrast was performed on a 3TGE [employer] system. Sequences obtained include sagittal T1, T2 and IR; axial T2and proton density. Following the administration of standard dosegadolinium, T1 weighted sagittal and axial images were performed. COMPARISON: 12/18/2022 FINDINGS: No change diffuse confluent T-2/flair hyperintensity throughout the cordfrom the craniocervical junction to the C6 level. None of the lesionsenhances. No new lesions are seen. There is anatomic alignment and no evidence of fracture or subluxation. Vertebral bodies demonstrate normal bone marrow signal. The craniocervical junction is normal. The paraspinal soft tissues are unremarkable. There is mild narrowing of the C5-6 disc space. C2-C3: There is no significant neuroforaminal or spinal canal stenosis. C3-C4: There is no significant neuroforaminal or spinal canal stenosis. C4-C5: There is no significant neuroforaminal or spinal canal stenosis. C5-C6: There is no significant neuroforaminal or spinal canal stenosis. C6-C7: There is no significant neuroforaminal or spinal canal stenosis. C7-T1: There is no significant neuroforaminal or spinal canal stenosis. IMPRESSION: No change diffuse confluent T-2/flair hyperintensity throughout the cordfrom the craniocervical junction to the C6 level. None of the lesionsenhances. No new lesions are seen. If this radiology report contains a blank impression section, it is anincomplete radiology report. Please contact the interpreting radiologistor applicable radiology division as soon as possible to obtain thecompleted interpretation. Workstation ID: [id number] Shubham Arnold MD PhD IMG MRI PROCEDURES Minerva l Result * Hepatitis Panel, Acute (09/24/2022 4:24 PM EST) Hepatitis A IgM NON-REACT KAYCE NON-REACT KAYCE 09/25/2022 4:28 PM EST [facility] Hepatitis B Surface Antigen NON-REACT KAYCE NON-REACT KAYCE 09/25/2022 4:28 PM EST [facility] Hepatitis B Core Antibody NON-REACT KAYCE NON-REACT KAYCE 09/25/2022 4:28 PM EST [facility] Hepatitis C Antibody NON-REACT KAYCE NON-REACT KAYCE 09/25/2022 4:28 PM EST [facility] Signal To Cut-Off <0.02 <1.00 09/25/2022 4:28 PM EST [facility] Comment: HCV antibody was non-reactive. There is no laboratory evidence of HCV infection. In most cases, no further action is required. However, if recent HCV exposure is suspected, a test for HCV RNA (test code 65342) is suggested. For additional information please refer to http://[employer] Writer.MarketShare/faq/ZGQ90d6 (This link is being provided for informational/ educational purposes only.) For additional information, please refer to http://[employer] Writer.MarketShare/faq/PLY189 (This link is being provided for informational/ educational purposes only.) Blood Structure of peripheral vein / Unknown Venipuncture / Unknown 09/24/2022 4:24 PM EST 09/24/2022 4:31 PM EST Narrative [facility] - 09/25/2022 4:28 PM EST [facility] Received Date: Vignesh Cordero MD LAB BLOOD ORDERABLES Final R esult [facility] [address] [facility] [address] [facility], [place] [address], [facility] [address] [facility] 3rd [address], [place] [address], from Last 3 Months or Most Recently Relevant to Health Maintenance Insurance [facility] Care Teams Adoption Manager Relationship Specialty Start Date End Date Alicia Lui MD [address] [place] [address] PCP - General 09/23/22
--- OUTSIDE RECORDS SUMMARY | 2024-09-17 12:45 | XMS_ITS | Encounter Summary ---
Author Organization [facility] Address [address] [place] [address] Care Team Providers Care Air Quality Instrument Specialist Name Role Phone Alicia Lui MD Primary Care Provider [phone] Encounter Details Date Type Department Care Team (Late st Contact Info) Description 09/30/2022 Telephone [facility] [address] [place] [address] Telephone Intake, Staff Social History Tobacco Use Types Packs/Day Years Used Date Smoking Tobacco: Never Assessed Sex and Gender Information Value Date Recorded Sex Assigned at Male 08/29/2024 4:37 PM EST Legal Sex Male 2:13 PM EST Gender Identity Male 08/29/2024 4:37 PM EST Sexual Orientation Straight 08/29/2024 4: 37 PM EST documented as of this encounter Miscellaneous Notes * Telephone Encounter - Lottie Kowalski - 09/30/2022 1:50 PM EST Fax over notes to pt pcp office [phone]. * Telephone Encounter - Anita Green - 09/30/2022 1:39 PM EST Nidhi from PCP office call for notes from yesterday's visit. Please fax to [phone]. documented in this encounter Plan of Treatment Upcoming Encounters Date Type Department Care Team (Late st Contact Info) Description 12/06/2024 11:00 AM EDT Office Visit [facility] [address] [place] [phone] Executive Pilot: Sirena Salomon MD [address] [place] [phone] 03/04/2025 8:30 AM EDT Infusion [facility] [address] [place] [address] Shubham Arnold MD PhD [address] [place] [address] documented as of this encounter Visit Diagnoses Not on filedocumented in this encounter Care Teams Air Quality Instrument Specialist Relationship Specialty Start Date End Date Alicia Lui MD [address] [place] [phone] PCP - General 09/23/22 documented as of this encounter
--- OUTSIDE RECORDS SUMMARY | 2024-09-17 12:45 | XMS_ITS | Encounter Summary ---
Author Organization [facility] Address [address] [place] [address] Care Team Providers Care Cant Gang Sawyer Name Role Phone Alicia Lui MD Primary Care Provider Encounter Details Date Type Department Care Team (Late st Contact Info) Description 02/04/2023 Orders Only [facility] [address] [place] [address] Sirena Bradshaw MD [address] [place] [address] Social History Tobacco Use Types Packs/Day Years Used Date Smoking Tobacco: Never Assessed Sex and Gender Information Value Date Recorded Sex Assigned at Male 08/29/2024 4:37 PM EST Legal Sex Male 2:13 PM EST Gender Identity Male 08/29/2024 4:37 PM EST Sexual Orientation Straight 08/29/2024 4: 37 PM EST documented as of this encounter Plan of Treatment Upcoming Encounters Date Type Department Care Team (Late st Contact Info) Description 12/06/2024 11:00 AM EDT Office Visit [facility] Sclerosis [facility] [address] [place] [address] Morning Show Producer: Sirena Salomon MD [address] [place] [address] 03/04/2025 8:30 AM EDT Infusion [facility] [address] [place], [place] [phone] Shubham Arnold MD PhD [address] [place] [address] documented as of this encounter Visit Diagnoses Not on filedocumented in this encounter Care Teams Cant Gang Sawyer Relationship Specialty Start Date End Date Alicia Lui MD [address] [place] [address] PCP - General 09/23/22 documented as of this encounter
--- OUTSIDE RECORDS SUMMARY | 2024-09-17 12:45 | XMS_ITS | Encounter Summary ---
Author Organization [facility] Address [address] [place] [address] Care Team Providers Care Pattern Wheel Maker Name Role Phone Alicia Lui MD Primary Care Provider [phone] Reason for Referral * MRI/CAT/PET Scan (Routine) - Pending Review Specialty Diagnoses / Procedures Referred By Contac t Referred To Contact Radiology Diagnoses Multiple sclerosis (HCC) Procedures MRI cervical spine with and without contrast Chantal Arana MD [address] [place] [address] Phone: tel: fax: Referral ID Status Reason Start Date Expiration Date V isits Requested Visits Authorized [id number] Pending Review 09/13/2024 03/15/2026 1 1 * MRI/CAT/PET Scan (Routine) - Pending Review Specialty Diagnoses / Procedures Referred By Contac t Referred To Contact Radiology Diagnoses Multiple sclerosis (HCC) Procedures MRI Thoracic Spine W WO Contrast Chantal Arana MD [address] [place] [address] Phone: tel: fax: Referral ID Status Reason Start Date Expiration Date V isits Requested Visits Authorized [id number] Pending Review 09/13/2024 03/15/2026 1 1 * MRI/CAT/PET Scan (Routine) - Pending Review Specialty Diagnoses / Procedures Referred By Contac t Referred To Contact Radiology Diagnoses Multiple sclerosis (HCC) Procedures MRI Brain with and without Contrast Chantal Arana MD [address] [place] [address] Phone: tel: fax: Referral ID Status Reason Start Date Expiration Date V isits Requested Visits Authorized [id number] Pending Review 09/13/2024 03/15/2026 1 1 Reason for Visit * Neurology (Routine) - Pending Review Specialty Diagnoses / Procedures Referred By Conthi t Referred To Contact Neurology Diagnoses Multiple sclerosis (HCC) Procedures FOLLOW UP Alicia King MD [address] [place] [address] Phone: tel: fax: Chantal Arana MD [address] [place] [address] Phone: tel: fax: Referral ID Status Reason Start Date Expiration Date V isits Requested Visits Authorized [id number] Pending Review 09/13/2024 03/15/2026 6 6 Encounter Details Date Type Department Care Team (Late st Contact Info) Description 09/13/2024 11:00 AM EST Office Visit [facility] Sclerosis [facility] [address] [place] [address] Qa Automation Developer: Sirena Salomon MD [address] [place] [phone] Multiple sclerosis (HCC) (Primary Dx) Social History Tobacco Use Types Packs/Day Years Used Date Smoking Tobacco: Never Smokeless Tobacco: Never Sex and Gender Information Value Date Recorded Sex Assigned at Male 08/29/2024 4:37 PM EST Legal Sex Male 2:13 PM EST Gender Identity Male 08/29/2024 4:37 PM EST Sexual Orientation Straight 08/29/2024 4: 37 PM EST documented as of this encounter Last Filed Vital Signs Vital Sign Reading Time Taken Comments Blood Pressure 125/82 09/13/2024 11:01 AM EST Pulse 91 09/13/2024 11:01 AM EST Temperature - - Respiratory Rate - - Oxygen Saturation - - Inhaled Oxygen Concentration - - Weight - - Height - - Body Mass Index - - documented in this encounter Patient Instructions * Patient Instructions* Sirena Bradshaw MD - 09/13/2024 11:48 AM EST Please start taking the prescribed vitamin D supplement daily, in addition to a multivitamin We will recheck your vitamin D level at your next visit. documented in this encounter Plan of Treatment Upcoming Encounters Date Type Department Care Team (Late st Contact Info) Description 12/06/2024 11:00 AM EDT Office Visit [facility] S[facility] [address] [place] [address] Qa Automation Developer: Sirena Salomon MD [address] [place] [phone] 03/04/2025 8:30 AM EDT Infusion [facility] [address] [place] [address] Shubham Arnold MD PhD [address] [place] [phone] Scheduled Orders Name Type Priority Associated Diagnoses Orde r Schedule MRI Brain with and without Contrast Imaging Liu Routine Multiple sclerosis (HCC) Expected: 10/29/2024, Expires: 10/11/2025 MRI Thoracic Spine W WO Contrast Imaging Liu Routine Multiple sclerosis (HCC) Expected: 10/29/2024, Expires: 10/11/2025 MRI cervical spine with and without contrast Imaging Liu Routine Multiple sclerosis (HCC) Expected: 10/29/2024, Expires: 10/11/2025 documented as of this encounter Visit Diagnoses Diagnosis Multiple sclerosis (HCC)- Primary Multiple sclerosis documented in this encounter Care Teams Pattern Wheel Maker Relationship Specialty Start Date End Date Alicia Lui MD [address] [place] [phone] PCP - General 09/23/22 documented as of this encounter
--- OUTSIDE RECORDS SUMMARY | 2024-09-17 12:45 | XMS_ITS | Encounter Summary ---
Author Organization [facility] Address [address] [place] [address] Care Team Providers Care Technician Semiconductor Development Name Role Phone Alicia Lui MD Primary Care Provider [phone] Reason for Visit * Episode Based Medications (Routine) - Authorized Specialty Diagnoses / Procedures Referred By Conthi t Referred To Contact Diagnoses Multiple sclerosis (HCC) Shubham Arnold MD PhD [address] [place] [address] Phone: tel: fax: [facility] [address] [place] [address] Phone: tel: Referral ID Status Reason Start Date Expiration Date V isits Requested Visits Authorized [id number] Authorized 01/21/2023 02/20/2025 6 1197 Encounter Details Date Type Department Care Team (Late st Contact Info) Description 09/05/2024 8:30 AM EST Infusion [facility] [address] [place] [address] Shubham Arnold MD PhD [address] [place] [address] Mago Henderson RN Multiple sclerosis (HCC) (Primary Dx) Social History [...] Sign Reading Time Taken Comments Blood Pressure 106/71 09/05/2024 10:03 AM EST Pulse 70 09/05/2024 10:03 AM EST Temperature 36.8 ??C (98.2 ??F) 09/05/2024 10:[address] Respiratory Rate 16 09/05/2024 10:03 AM EST Oxygen Saturation 98% 09/05/2024 10:03 AM EST Inhaled Oxygen Concentration - - Weight 78.7 kg (173 lb 6.3 oz) 09/05/2024 8:40 A M EST Height - - Body Mass Index 26.36 05/24/2024 11:46 AM EDT documented in this encounter Nursing Notes * Mago Henderson RN - 09/05/2024 8:30 AM EST Patient presented to the clinic ambulatory He denied any fever, infections or antiBx use in the past 7days He reported feeling well today PIV placed Premedications given Ocrevus administered, via rapid infusion, without incident He tolerated well, offered no complaints Pt observed x1 hour No s/s of reaction noted PIV removed, site benign AVS given He was discharged ambulatory documented in this encounter Plan of Treatment Upcoming Encounters Date Type Department Care Team (Late st Contact Info) Description 12/06/2024 11:00 AM EDT Office Visit [facility] [address] [place] [address] Buckle Attacher: Sirena Salomon MD [address] [place] [address] 03/04/2025 8:30 AM EDT Infusion [facility] [address] [place] [address] Shubham Arnold MD PhD [address] [place] [address] documented as of this encounter Visit Diagnoses Diagnosis Multiple sclerosis (HCC)- Primary Multiple sclerosis documented in this encounter Administered Medications Inactive Administered Medications - up to 3 most recent administrations Medication Order MAR Action Action Date Dose Rate Site acetaminophen (TYLENOL) tablet 975 mg 975 mg, oral, Once, On Tue09/05/24 at 0900, 1 dose, Administer 30 minutes prior to infusion.Indications:Multi ple sclerosis (HCC) Given 09/05/2024 8:57 AM EST 975 mg diphenhydrAMINE (BENADRYL) capsule 50 mg 50 mg, oral, Once, On Tue09/05/24 at 0900, 1 dose, Administer 30 minutes prior to infusionIndications:Multip le sclerosis (HCC) Given 09/05/2024 8:57 AM EST 50 mg methylPREDNISolone sodium succinate (SOLU-Medrol) injection 100 mg 100 mg, intravenous, Once, On Tue09/05/24 at 0900, 1 dose, Administer 30 minutes prior to infusion, Indication: Other, Other Indication: pre-medicationIndications: Multiple sclerosis (HCC) Given 09/05/2024 8:59 AM EST 100 mg ocrelizumab (OCREVUS) 600 mg in 0.9% NaCl 500 mL infusion 600 mg, intravenous, Once, On Tue09/05/24 at 0930, 1 dose, See ocrelizumab admin chart. Use 0.22 micron filter.Indications:Multipl e sclerosis (HCC) Rate/Dose Change 09/05/2024 10:35 AM EST 300 mL/hr Rate/Dose Change 09/05/2024 10:03 AM EST 250 mL /hr Rate/Dose Change 09/05/2024 9:48 AM EST 200 mL/ hr sodium chloride 0.9% (NS) premix infusion 250 mL, intravenous, at 20 mL/hr, Once, On Tue09/05/24 at 0900, 1 doseIndications:Multiple sclerosis (HCC) New Bag/Syringe 09/05/2024 8:50 AM EST 250 mL 20 mL/hr documented in this encounter Care Teams Technician Semiconductor Development Relationship Specialty Start Date End Date Alicia Lui MD [address] [place] [address] PCP - General 09/23/22 documented as of this encounter
--- OUTSIDE RECORDS SUMMARY | 2024-09-17 12:45 | XMS_ITS | Clinical Summary ---
Author Organization [facility] Address [address] [place] [address] Care Team Providers Care Domestic Laundry Worker Name Role Phone Alicia Lui MD Primary Care Provider [phone] Allergies No known active allergies Medications meclizine (ANTIVERT) 25 mg tablet Take 1 tablet (25 mg total) by mouth 3 times a day as needed for dizziness. 30 tablet 09/24/2022 Active cholecalciferol (VITAMIN D3) 2,000 unit capsule Take 1 capsule (2,000 Units total) by mouth once a day. 30 capsule 11 09/13/2024 Active Active Problems Problem Noted Date Diagnosed Date Multiple sclerosis 01/21/2023 Encounters Date Type Department Care Team Description 09/13/2024 11:00 AM EST Office Visit [facility] [address] [place] [address] Lace Cutter: Sirena Salomon MD Multiple sclerosis (HCC) (Primary Dx) 09/05/2024 8:30 AM EST Infusion [facility] [address] [place] [address] Shubham Arnold MD PhD Mago Henderson RN Multiple sclerosis (HCC) (Primary Dx) from Last 3 Months Social History Tobacco Use Types Packs/Day Years [...] Description 12/06/2024 11:00 AM EDT Office Visit [facility] [address] [place] [address] Lace Cutter: Sirena Salomon MD [address] [place] [address] 03/04/2025 8:30 AM EDT Infusion [facility] [address] [place] [address] Shubham Arnold MD PhD [address] [place] [address] Health Maintenance Due Date Last Done Comments 1 Week [facility] 2002 1 Month [facility] 2002 2 Month [facility] 2002 4 Month [facility] 02/27/2003 6 Month [facility] 04/28/2003 9 Month [facility] 07/27/2003 12 Month [facility] 11/06/2003 MMR Vaccines (1 of 1 - Stand elizabeth series) 11/06/2003 15 Month [facility] 01/23/2004 18 Month [facility] 04/22/2004 24 Month [facility] 10/19/2004 30 Month [facility] 02/22/2005 3 to 21 Year [facility] 2005 Well Child Check 2005 DTaP,Tdap,and Td Vaccines (1 - Tdap) 2009 Varicella Vaccines (1 of 2 - 13+ 2-dose series) 11/06/2015 HPV Vaccines (1 - Male 3-dos e series) 2017 Hepatitis B Vaccines (1 of 3 - 19+ 3-dose series) 2021 COVID-19 Vaccine (1 - 2023-2 5 season) 2024 Influenza Vaccine (#1) 2024 Alcohol/Substance Use Screening 07/25/2024 Depression Screening and Follow-Up 07/25/2024 Social Drivers of Health [place] ual Screening 07/25/2024 RSV Vaccine (60+ years old a nd patients) (1 - 1-dose 75+ series) 2077 Hepatitis C Screening Completed 09/24/2022 HIV Screening Completed 09/29/2022 Meningococcal Vaccine Aged Out No cheryl supriya eligible based on patient's age to complete this topic Pneumococcal Vaccine: Pediat jordyn (0-5 Years) and At-Risk Patients (6-50 Years) Aged Out No longer eligible b ased on patient's age to complete this topic Procedures * Due to [place] [employer] law, this organization might not be sharing [...] to Health Maintenance Results * Due to [place] [employer] law, this organization might not be sharing [...] obtain the completed interpretation. ? Workstation ID: [id number] Narrative 06/20/2024 7:01 AM EST EXAMINATION: MRI [...] herniation or spinal stenosis. Resulting Agency Comment [id number] Procedure Note Domenico Pereira MD - 06/20/2024 [...] possible to obtain thecompleted interpretation. Workstation ID: [id number] us Shubham Arnold MD PhD IMG MRI [...] the ordering or responsible provider via the [employer] Findings system on 06/19/2024. ??Receipt of this communication by the responsible provider will be documented in [employer]it[employer] Findings upon receiving acknowledgement if applicable, Message ID [id number]. If this radiology report contains a blank impression section, it is an incomplete radiology report. ??Please contact the interpreting radiologist or applicable radiology division as soon as possible to obtain the completed interpretation. ? Workstation ID: [id number] Narrative 06/19/2024 11:45 PM EST MRI BRAIN [...] cerebellar hemispheres not entirely included in the [id number]-[id number], more so on the right side. BRAIN PARENCHYMA New T2 hyperintense Lesions: right occipital periventricular lesion 4/15, posteromedial margin of the atrium of the left lateral ventricle 4/18, right forceps major 4/, left posterior periventricular 4/25 Enlarging T2 hyperintense Lesions: anterior margin of the left frontal horn 4/24, superior margin of the right occipital horn 8/137 Enhancing Lesions: None. Reduced Diffusion: None. Overall Disease [place]: No change in multiple periventricular, juxtacortical, and infratentorial white matter lesions compatible with known demyelinating disease. T1 Hypointensities (Black Holes): Present Parenchymal Atrophy: Mild. Callosal Atrophy: Mild. OTHER: Mucosal thickening in the visualized paranasal sinuses. Retention cysts in the maxillary sinuses. Resulting Agency Comment [id number] us Shubham Arnold MD PhD IMG MRI [...] obtain the completed interpretation. ? Workstation ID: [id number] Narrative 06/20/2024 6:56 AM EST EXAMINATION: MRI [...] or spinal canal stenosis. Resulting Agency Comment [id number] Procedure Note Domenico Pereira MD - 06/20/2024 EXAMINATION: MRI CERVICAL SPINE W WO CONTRAST INDICATION:Multiple sclerosis - demyelinating disease, follow up TECHNIQUE: MRI of the cervical spine without contrast was performed on a 3TGE [employer] system. Sequences obtained include sagittal T1, T2 [...] possible to obtain thecompleted interpretation. Workstation ID: [id number] us Shubham Arnold MD PhD IMG MRI PROCEDURES Minerva l Result * Hepatitis Panel, Acute (09/24/2022 4:24 PM EST) Hepatitis A IgM NON-REACT KAYCE NON-REACT KAYCE 09/25/2022 4:28 PM EST [employer] [facility] Hepatitis B Surface Antigen NON-REACT KAYCE NON-REACT KAYCE 09/25/2022 4:28 PM EST [employer] [facility] Hepatitis B Core Antibody NON-REACT KAYCE NON-REACT KAYCE 09/25/2022 4:28 PM EST [employer] [facility] Hepatitis C Antibody NON-REACT KAYCE NON-REACT KAYCE 09/25/2022 4:28 PM EST [employer] [facility] Signal To Cut-Off <0.02 <1.00 09/25/2022 4:28 PM EST [employer] [facility] Comment: HCV antibody was non-reactive. There is no laboratory evidence of HCV infection. In most cases, no further action is required. However, if recent HCV exposure is suspected, a test for HCV RNA (test code 89519) is suggested. For additional information please refer to http://education.[employer]/faq/XDZ65u8 (This link is being provided for informational/ educational purposes only.) For additional information, please refer to http://Tipbit.Coinfloor.Immunovaccine/faq/CBD327 (This link is being provided for informational/ educational purposes only.) Blood Structure of peripheral vein / Unknown Venipuncture / Unknown 09/24/2022 4:24 PM EST 09/24/2022 4:31 PM EST Narrative [facility] - 09/25/2022 4:28 PM EST [facility] Received Date:[id number] Vignesh Cordero MD LAB BLOOD ORDERABLES Final R esult [facility] [address] [facility] 3rd Floor, [place] [address], [place] [phone] [facility] [address] [facility] 3rd Floor, [place] [address], [place] [phone] from Last 3 Months or Most Recently Relevant to Health Maintenance Insurance [facility] Care Teams Domestic Laundry Worker Relationship Specialty Start Date End Date Alicia Lui MD [address] [place] [address] PCP - General 09/23/22
== END 2024-09-17 13:14 | disposition home or self-care (01) ==
PROVIDERS: Visit Provider Nurse Practitioner Family
DX: J06.9 Acute upper respiratory infection, unspecified (principal); R05.2 Subacute cough

== ENCOUNTER 2024-09-17 11:06 | Outpatient (REF) | payer OTHER, SELFPAY ==
--- OUTSIDE RECORDS SUMMARY | 2024-09-17 15:09 | XMS_ITS | Clinical Summary ---
Author Organization [facility] Address [address] [place] [address] Care Team Providers Care Small Business Representative Name Role Phone Alicia Lui MD Primary Care Provider [phone] Allergies No known active allergies Medications meclizine [...] Description 09/13/2024 11:00 AM EST Office Visit [facility] [address] [place] [address] Personal Banking Representative: Sirena Salomon MD Multiple sclerosis (HCC) (Primary Dx) 09/05/2024 8:30 AM EST Infusion [facility] [address] [place] [address] Shubham Arnold MD PhD Mago Henderson RN [...] Description 12/06/2024 11:00 AM EDT Office Visit [facility] [address] [place] [address] Personal Banking Representative: Sirena Salomon MD [address] [place] [address] 03/04/2025 8:30 AM EDT Infusion [facility] [address] [place] [address] Shubham Arnold MD PhD [address] [place] [address] Health Maintenance Due Date Last Done Comments [address] [facility] [address] [facility] [address] [facility] [address] [facility] 02/27/[address] [facility] 04/28/[address] [facility] 07/27/[address] [facility] 11/06/2003 MMR Vaccines (1 of 1 - Stand elizabeth series) 11/06/[address] [facility] 01/23/[address] [facility] 04/22/[address] [facility] 10/19/[address] [facility] 02/22/2005 [address] [facility] 2005 Well Child Check 2005 DTaP,Tdap,and Td [...] complete this topic Procedures * Due to [place] [employer] law, this organization might not be sharing [...] to Health Maintenance Results * Due to [place] [employer] law, this organization might not be sharing [...] obtain the completed interpretation. ? Workstation ID: [id number] Narrative 06/20/2024 7:01 AM EST EXAMINATION: MRI [...] herniation or spinal stenosis. Resulting Agency Comment [id number] Procedure Note Domenico Pereira MD - 06/20/2024 [...] possible to obtain thecompleted interpretation. Workstation ID: [id number] us Shubham Arnold MD PhD IMG MRI PROCEDURES Minerav l Result * MRI Brain with and [...] the ordering or responsible provider via the [employer] Findings system on 06/19/2024. ??Receipt of this communication by the responsible provider will be documented in [employer] Findings upon receiving acknowledgement if applicable, Message ID [id number]. If this radiology report contains a blank impression section, it is an incomplete radiology report. ??Please contact the interpreting radiologist or applicable radiology division as soon as possible to obtain the completed interpretation. ? Workstation ID: [id number] Narrative 06/19/2024 11:45 PM EST MRI BRAIN [...] cerebellar hemispheres not entirely included in the cyzhg-vs-rayk, more so on the right side. BRAIN [...] Lesions: None. Reduced Diffusion: None. Overall Disease [place]: No change in multiple periventricular, juxtacortical, and infratentorial white matter lesions compatible with known demyelinating disease. T1 Hypointensities (Black Holes): Present Parenchymal Atrophy: Mild. Callosal Atrophy: Mild. OTHER: Mucosal thickening in the visualized paranasal sinuses. Retention cysts in the maxillary sinuses. Resulting Agency Comment [id number] us Shubham Arnold MD PhD IMG MRI [...] obtain the completed interpretation. ? Workstation ID: [id number] Narrative 06/20/2024 6:56 AM EST EXAMINATION: MRI [...] or spinal canal stenosis. Resulting Agency Comment [id number] Procedure Note Domenico Pereira MD - 06/20/2024 EXAMINATION: MRI CERVICAL SPINE W WO CONTRAST INDICATION:Multiple sclerosis - demyelinating disease, follow up TECHNIQUE: MRI of the cervical spine without contrast was performed on a 3TGE [employer] system. Sequences obtained include sagittal T1, T2 [...] possible to obtain thecompleted interpretation. Workstation ID: [id number] us Shubham Arnold MD PhD IMG MRI PROCEDURES Minerva l Result * Hepatitis Panel, Acute (09/24/2022 4:24 PM EST) Hepatitis A IgM NON-REACT KAYCE NON-REACT KAYCE 09/25/2022 4:28 PM EST [employer] [facility] Hepatitis B Surface Antigen NON-REACT KAYCE NON-REACT KAYCE 09/25/2022 4:28 PM EST [employer] [facility] Hepatitis B Core Antibody NON-REACT KAYCE NON-REACT KAYCE 09/25/2022 4:28 PM EST [employer] [facility] Hepatitis C Antibody NON-REACT KAYCE NON-REACT KAYCE 09/25/2022 4:28 PM EST [employer] [facility] Signal To Cut-Off <0.02 <1.00 09/25/2022 4:28 PM EST [employer] [facility] Comment: HCV antibody was non-reactive. There is no laboratory evidence of HCV infection. In most cases, no further action is required. However, if recent HCV exposure is suspected, a test for HCV RNA (test code 98286) is suggested. For additional information please refer to http://education.[employer]/faq/JSL83r2 (This link is being provided for informational/ educational purposes only.) For additional information, please refer to http://[employer] [place].[employer].ProspX/faq/JQR222 (This link is being provided for informational/ educational purposes only.) Blood Structure of peripheral vein / Unknown Venipuncture / Unknown 09/24/2022 4:24 PM EST 09/24/2022 4:31 PM EST Narrative [facility] - 09/25/2022 4:28 PM EST [facility] Received Date:[id number] Vignesh Cordero MD LAB BLOOD ORDERABLES Final R esult [facility] [place] [address] [facility] 3rd Floor, [place] [address], [place] [phone] [facility] [address] [facility] 3rd Floor, [place] [address], [place] [phone] from Last 3 Months or Most Recently Relevant to Health Maintenance Insurance [facility] Care Teams Small Business Representative Relationship Specialty Start Date End Date Alicia Lui MD [address] [place] [address] PCP - General 09/23/22
--- OUTSIDE RECORDS SUMMARY | 2024-09-17 15:09 | XMS_ITS | Encounter Summary ---
Author Organization [facility] Address [address] [place] [address] Care Team Providers Care Geological Engineering Teacher Name Role Phone Alicia Lui MD Primary Care Provider [phone] Encounter Details Date Type Department Care Team (Late st Contact Info) Description 09/30/2022 Telephone [facility] [address] [place] [address] Telephone Intake, Staff Social History Tobacco Use [...] Fax over notes to pt pcp office [phone]. * Telephone Encounter - Anita Green - 09/30/2022 1:39 PM EST Nidhi from PCP office call for notes from yesterday's visit. Please fax to [phone]. documented in this encounter Plan of Treatment Upcoming Encounters Date Type Department Care Team (Late st Contact Info) Description 12/06/2024 11:00 AM EDT Office Visit [facility] [address] [place] [address] Core Inspector: Sirena Salomon MD [address] [place] [address] 03/04/2025 8:30 AM EDT Infusion [facility] [address] [place] [address] Shubham Arnold MD PhD [address] [place] [address] documented as of this encounter Visit Diagnoses Not on filedocumented in this encounter Care Teams Geological Engineering Teacher Relationship Specialty Start Date End Date Alicia Lui MD [address] [place] [phone] PCP - General 09/23/22 documented as of this encounter
--- OUTSIDE RECORDS SUMMARY | 2024-09-17 15:09 | XMS_ITS | Encounter Summary ---
Author Organization [facility] Address [address] [place] [address] Care Team Providers Care Seamer Panty Hose Name Role Phone Alicia Lui MD Primary Care Provider [phone] Reason for Visit * Episode Based Medications (Routine) - Authorized Specialty Diagnoses / Procedures Referred By Conthi t Referred To Contact Diagnoses Multiple sclerosis (HCC) Shubham Arnold MD PhD [address] [place] [address] Phone: tel: fax: [facility] [address] [place] [address] Phone: tel: Referral ID Status Reason Start Date Expiration Date V isits Requested Visits Authorized [id number] Authorized 01/21/2023 02/20/2025 6 1197 Encounter Details Date Type Department Care Team (Late st Contact Info) Description 09/05/2024 8:30 AM EST Infusion [facility] [address] [place] [address] Shubham Arnold MD PhD [address] [place] [address] Mago Henderson RN Multiple sclerosis (HCC) (Primary [...] 12/06/2024 11:00 AM EDT Office Visit [facility] [address] [place] [address] Area Field Manager: Sirena Salomon MD [address] [place] [phone] 03/04/2025 8:30 AM EDT Infusion [facility] [address] [place] [address] Shubham Arnold MD PhD [address] [place] [phone] documented as of this encounter Visit Diagnoses [...] mL/hr documented in this encounter Care Teams Seamer Panty Hose Relationship Specialty Start Date End Date Alicia Lui MD [address] [place] [address] PCP - General 09/23/22 documented as of this encounter
--- OUTSIDE RECORDS SUMMARY | 2024-09-17 15:09 | XMS_ITS | Referral Summary ---
Author Organization [facility] Address [address] [place] [address] Care Team Providers Care Utility Bag Assembler Name Role Phone Alicia Lui MD Primary Care Provider [phone] Encounters Date Type Department Care Team Description 09/13/2024 11:00 AM EST Office Visit [facility] [address] [place] [phone] Campus Chaplain: Sirena Salomon MD Multiple sclerosis ([facility]) (Primary Dx) 09/05/2024 8:30 AM EST Infusion [facility] [address] [place] [address] Shubham Arnold MD PhD Mago Henderson RN Multiple sclerosis ([facility]) (Primary Dx) from Last 3 Months Allergies [...] Description 12/06/2024 11:00 AM EDT Office Visit [facility] [address] [place] [address] Campus Chaplain: Sirena Salomon MD [address] [place] [address] 03/04/2025 8:30 AM EDT Infusion [facility] [address] [place] [address] Shubham Arnold MD PhD [address] [place] [phone] Procedures * Due to [place] state law, this organization might not be [...] to Health Maintenance Results * Due to [place] state law, this organization might not be [...] obtain the completed interpretation. ? Workstation ID: [id number] Narrative 06/20/2024 7:01 AM EST EXAMINATION: MRI [...] herniation or spinal stenosis. Resulting Agency Comment [id number] Procedure Note Domenico Pereira MD - 06/20/2024 [...] possible to obtain thecompleted interpretation. Workstation ID: [id number] us Shubham Arnold MD PhD IMG MRI [...] the ordering or responsible provider via the [email or web address] system on 06/19/2024. ??Receipt of this communication by the responsible provider will be documented in [email or web address] upon receiving acknowledgement if applicable, Message ID [id number]. If this radiology report contains a blank impression section, it is an incomplete radiology report. ??Please contact the interpreting radiologist or applicable radiology division as soon as possible to obtain the completed interpretation. ? Workstation ID: [id number] Narrative 06/19/2024 11:45 PM EST MRI BRAIN [...] cerebellar hemispheres not entirely included in the [id number], more so on the right side. BRAIN [...] Lesions: None. Reduced Diffusion: None. Overall Disease Colp: No change in multiple periventricular, juxtacortical, and infratentorial white matter lesions compatible with known demyelinating disease. T1 Hypointensities (Black Holes): Present Parenchymal Atrophy: Mild. Callosal Atrophy: Mild. OTHER: Mucosal thickening in the visualized paranasal sinuses. Retention cysts in the maxillary sinuses. Resulting Agency Comment [id number] us Shubham Arnold MD PhD IMG MRI [...] obtain the completed interpretation. ? Workstation ID: [id number] Narrative 06/20/2024 6:56 AM EST EXAMINATION: MRI [...] or spinal canal stenosis. Resulting Agency Comment [id number] Procedure Note Domenico Pereira MD - 06/20/2024 EXAMINATION: MRI CERVICAL SPINE W WO CONTRAST INDICATION:Multiple sclerosis - demyelinating disease, follow up TECHNIQUE: MRI of the cervical spine without contrast was performed on a 3TGE [employer] system. Sequences obtained include sagittal T1, T2 [...] possible to obtain thecompleted interpretation. Workstation ID: [id number] Shubham Arnold MD PhD IMG MRI PROCEDURES Minerva l Result * Hepatitis Panel, Acute (09/24/2022 4:24 PM EST) Hepatitis A IgM NON-REACT KAYCE NON-REACT KAYCE 09/25/2022 4:28 PM EST [facility] Hepatitis B Surface Antigen NON-REACT KAYCE NON-REACT KAYCE 09/25/2022 4:28 PM EST [facility] Hepatitis B Core Antibody NON-REACT KAYCE NON-REACT KAYCE 09/25/2022 4:28 PM EST [facility] Hepatitis C Antibody NON-REACT KAYCE NON-REACT KAYCE 09/25/2022 4:28 PM EST [facility] Signal To Cut-Off <0.02 <1.00 09/25/2022 4:28 PM EST [facility] Comment: HCV antibody was non-reactive. There is no laboratory evidence of HCV infection. In most cases, no further action is required. However, if recent HCV exposure is suspected, a test for HCV RNA (test code 11497) is suggested. For additional information please refer to [email or web address]/faq/ECJ85e6 (This link is being provided for informational/ educational purposes only.) For additional information, please refer to [email or web address] (This link is being provided for informational/ educational purposes only.) Blood Structure of peripheral vein / Unknown Venipuncture / Unknown 09/24/2022 4:24 PM EST 09/24/2022 4:31 PM EST Narrative [facility] - 09/25/2022 4:28 PM EST [facility] Received Date: Vignesh Cordero MD LAB BLOOD ORDERABLES Final R esult [facility] [address] [facility] [address] [facility], [place] [address], [facility] [address] [facility] [address], [place] [address], from Last 3 Months or Most Recently Relevant to Health Maintenance Insurance [facility] Care Teams Utility Bag Assembler Relationship Specialty Start Date End Date Alicia Lui MD [address] [place] [phone] PCP - General 09/23/22
--- OUTSIDE RECORDS SUMMARY | 2024-09-17 15:09 | XMS_ITS | Encounter Summary ---
Author Organization [facility] Address [address] [place] [address] Care Team Providers Care Mechanics Handyman Name Role Phone Alicia Lui MD Primary Care Provider [phone] Reason for Referral * MRI/CAT/PET Scan (Routine) - Pending Review Specialty Diagnoses / Procedures Referred By Contac t Referred To Contact Radiology Diagnoses Multiple sclerosis (HCC) Procedures MRI cervical spine with and without contrast Chantal Arana MD [address] [place] [address] Phone: tel: fax: Referral ID Status Reason Start Date Expiration Date V isits Requested Visits Authorized [id number] Pending Review 09/13/2024 03/15/2026 1 1 * MRI/CAT/PET Scan (Routine) - Pending Review Specialty Diagnoses / Procedures Referred By Contac t Referred To Contact Radiology Diagnoses Multiple sclerosis (HCC) Procedures MRI Thoracic Spine W WO Contrast Chantal Arana MD [address] [place] [address] Phone: tel: fax: Referral ID Status Reason Start Date Expiration Date V isits Requested Visits Authorized [id number] Pending Review 09/13/2024 03/15/2026 1 1 * MRI/CAT/PET Scan (Routine) - Pending Review Specialty Diagnoses / Procedures Referred By Contac t Referred To Contact Radiology Diagnoses Multiple sclerosis (HCC) Procedures MRI Brain with and without Contrast Chantal Arana MD [address] [place] [address] Phone: tel: fax: Referral ID Status Reason Start Date Expiration Date V isits Requested Visits Authorized [id number] Pending Review 09/13/2024 03/15/2026 1 1 Reason for Visit * Neurology (Routine) - Pending Review Specialty Diagnoses / Procedures Referred By Conthi t Referred To Contact Neurology Diagnoses Multiple sclerosis (HCC) Procedures FOLLOW UP Alicia King MD [address] [place] [address] Phone: tel: fax: Chantal Arana MD [address] [place] [address] Phone: tel: fax: Referral ID Status Reason Start Date Expiration Date V isits Requested Visits Authorized [id number] Pending Review 09/13/2024 03/15/2026 6 6 Encounter Details Date Type Department Care Team (Late st Contact Info) Description 09/13/2024 11:00 AM EST Office Visit [facility] [address] [place] [address] Ux Developer: Sirena Salomon MD [address] [place] [phone] Multiple sclerosis (HCC) (Primary Dx) Social History [...] Description 12/06/2024 11:00 AM EDT Office Visit [facility] [address] [place] [address] Ux Developer: Sirena Salomon MD [address] [place] [phone] 03/04/2025 8:30 AM EDT Infusion [facility] [address] [place] [address] Shubham Arnold MD PhD [address] [place] [phone] Scheduled Orders Name Type Priority Associated Diagnoses [...] sclerosis documented in this encounter Care Teams Mechanics Handyman Relationship Specialty Start Date End Date Alicia Lui MD [address] [place] [address] PCP - General 09/23/22 documented as of this encounter
--- OUTSIDE RECORDS SUMMARY | 2024-09-17 15:09 | XMS_ITS | Encounter Summary ---
Author Organization [facility] Address [address] [place] [address] Care Team Providers Care Deck Mechanic Name Role Phone Alicia Lui MD Primary Care Provider [phone] Encounter Details Date Type Department Care Team (Late st Contact Info) Description 02/04/2023 Orders Only [facility] [address] [place] [phone] Sirena Bradshaw MD [address] [place] [phone] Social History Tobacco Use Types Packs/Day Years [...] Description 12/06/2024 11:00 AM EDT Office Visit [facility] [address] [place] [address] Casing Tier: Sirena Salomon MD [address] [place] [address] 03/04/2025 8:30 AM EDT Infusion [facility] [address] [place], [place] [phone] Shubham Arnold MD PhD [address] [place] [address] documented as of this encounter Visit Diagnoses Not on filedocumented in this encounter Care Teams Deck Mechanic Relationship Specialty Start Date End Date Alicia Lui MD [address] [place] [address] PCP - General 09/23/22 documented as of this encounter
[2024-09-17 17:40] LABS: Influenza A PCR NEGATIVE (Negative); Influenza B PCR POSITIVE (Negative); Resp Syncy Virus RNA Qual PCR NEGATIVE (Negative); SARS COV2 PCR INHOUSE NEGATIVE (Negative)
== END 2024-09-17 11:07 | disposition home or self-care (01) ==
LOC: HO.LNP 11:06
PROVIDERS: Visit Provider Nurse Practitioner Family
DX: J06.9 Acute upper respiratory infection, unspecified (principal); R05.2 Subacute cough
CPT/HCPCS: 0241U

== ENCOUNTER 2025-06-19 01:37 | Emergency (ER) | payer OTHER, SELFPAY ==
--- OUTSIDE RECORDS SUMMARY | 2025-05-22 10:00 | XMS_ITS | Encounter Summary ---
Author Organization [facility] Address [address] [place] [address] Care Team Providers Care Primary Health Care Nurse Name Role Phone Aliica Lui MD Primary Care Provider [phone] Reason for Visit * Neurology (Routine) - Pending Review Specialty Diagnoses / Procedures Referred By Re odell Referred To Contact Neurology Diagnoses Multiple sclerosis Procedures FOLLOW UP MS Alicia Lui MD [address] [place] [phone] Phone: tel: fax: Chantal Arana MD [address] [place] [phone] Phone: tel: fax: Referral ID Status Reason Start Date Expiration Date V isits Requested Visits Authorized [id number] Pending Review 09/13/2024 03/15/2026 6 6 Encounter Details Date Type Department Care Team (Late st Contact Info) Description 05/22/2025 11:00 AM EDT Office Visit [facility] [address] [place] [phone] Addictions Counselor Assistant: Jolly Velásquez MD [address] [place] [phone] Multiple sclerosis (Primary Dx) Social History Tobacco Use Types Packs/Day Years Used Date Smoking Tobacco: Never Smokeless Tobacco: Never Alcohol Use Standard Drinks/Week Comments Never 0 (1 standard drink = 0.6 oz pur e alcohol) Sex and Gender Information Value Date Recorded Sex Assigned at Male 08/29/2024 4:37 PM EST Legal Sex Male 2:13 PM EST Gender Identity Male 08/29/2024 4:37 PM EST Sexual Orientation Straight 08/29/2024 4: 37 PM EST documented as of this encounter Last Filed Vital Signs Vital Sign Reading Time Taken Comments Blood Pressure 124/72 05/22/2025 11:01 AM EDT Pulse 87 05/22/2025 11:01 AM EDT Temperature 36.1 C (97 F) 05/22/2025 11:01 AM EDT Respiratory Rate 16 05/22/2025 11:01 AM EDT Oxygen Saturation 99% 05/22/2025 11:01 AM EDT Inhaled Oxygen Concentration - - Weight - - Height 172.7 cm (5' 8 ) 05/22/2025 11:01 AM EDT Body Mass Index - - documented in this encounter Patient Instructions * Patient Instructions* Jolly Jain MD - 05/22/2025 12:02 PM EDT - Continue Ocrevus - Continue vitamin D documented in this encounter Progress Notes * Chantal Arana MD - 06/14/2025 2:51 PM EST I saw and evaluated the patient. Case discussed with the resident/fellow and I agree with the findings and plan as documented in the resident's/fellow's note. * Jolly Jain MD - 05/22/2025 11:36 AM EDT [facility] Chief Complaint: Tiffany Tolbert is a 24 y.o. right hand dominant man seen today for follow-up evaluation of RRMS. OPTIMUM enrolled: Not assessed yet Clinical trial enrollment: N/A Clinical Summary Diagnosis: Relapsing-Remitting Multiple Sclerosis Diagnosis code: 1 Disease Activity in the Prior Year: No Date of Symptom Onset: October 2021 Date of Diagnosis: November 2021 Clinical Flare History: Symptoms Date (MM/YYYY) Comments (treatments, duration) R leg sensory deficit and weakness 10/2021 resolved L leg sensory deficit 11/2022 Resolved s/p ocrevus Fluctuating diplopia 12/2022 Improving but present Treatment History: Medication Start date Stop date Notes (dosing, adherence, efficacy) Dimethyl Fumarate 10/2021 - Ocrevus 02/2023 current High Accuracy: [] History of Present Illness Narrative Initial History: Patient moved to [facility] 1 month prior to presentation (09/29/2022) and was diagnosed with MS in [place] in October 2021. He was treated with Marovarex 240 mg BID (dimethyl fumarate)and Dalfarosis (dalfampridine) 10 mg daily. He presented to the emergency department with his parents as he ran out of his medications on 09/24/22 when he was seen by Dr. Carpio and Dr. Rodriguez. Brief MS history: In October 2021 patient had an episode of flulike illness, after which he started to become dizzy and was falling. He feels most of the symptoms were in his right lower extremity. He endorses weakness but also sensory deficits including electric shocklike pain in his arm and leg. Hewent to several doctors who at first attributed to a lumbar spine problem however his MRI of his lumbar spine was normal. He finally went to a neurologist who did an EMG and an EEG, and eventually ordered MR imaging and diagnosed him with MS. He admitted him to the hospital where he got 5 days of IV medication , presumably steroids. He reports having had a spinal biopsy , by this time presuminghe means a lumbar puncture. After this he was started on dimethyl fumarate and he endorses feeling relief of symptoms several weeks later. Work-up done in [place] brought by patient, all of these are attached in media in small photos -Elevated IgG and CSF and elevated IgG index -Positive oligoclonal bands -MRIs of the brain and C-spine with and without contrast (see media). Previous MRIs were about 9 months before initial visit (09/29/2022) He denies history of extensive vomiting in childhood. Patient experienced headaches intermittently with phonophobia, sometimes w shooting pain into arms/legs. Diziness/nausea after exerting himself. Double vision. Patient underwent MRIs in 12/18/22 which were suggestive of active disease. MRI brain showed multiple supratentorial and infratentorial white matter lesions in keeping with his known history of MS, many of which demonstrated enhancement suggestive of active lesions. He continued to develop more symptoms mostly in his L leg, also ringing in his ears and dizziness/double vision. It was clear DMF wasnot controlling his disease and Ocrevus infusions were expedited. MRI brain from 05/2024 showed multiple new or enlarging white matter lesions. He has been stable since his first set of Ocrevus infusions in 02/2023 and his neurofilament light chain has been normal. At his visit in 11/2024, he reported starting smoking cigarettes and the long- term and short-term risks of cigarette use as well as nicotine exposure in general to overall health were discussed. Interval History: He reports no new symptoms since his last visit in 11/2024. He underwent MRI brain, C-spine, and T-spine in 02/2025, which showed no significant changes in his existing lesions and no new definite lesions. He reports feeling tired for a day or two after his Ocrevus dose, but otherwise has been tolerating it well. He has been taking his vit D supplement most days. He has been sleeping about 7- 8 hours per night. He has no acute concerns. Current MS-relevant Review of Systems: Yes No Description Fatigue [] [x] Cognitive [] [x] Depression/Anxiety [] [x] Visual/brainstem [] [x] Weakness [] [x] Spasticity/spasms [] [x] Tremors [] [x] Pain/paresthesia [] [x] Sensory loss [] [x] Numbness of L leg improved Uhthoff's [] [x] GI/ problems [] [x] Sleep problems [] [x] Constitutional sx [] [x] Migraine headaches [] [x] Medical Review of Systems: As per above in HPI. A 10-point ROS is otherwise negative. Relevant Past Medical History: No past medical history on file. Infectious Mononucleosis: Not assessed Relevant Past Surgical History: No past surgical history on file. Social History: Social History Tobacco Use Smoking status: Never Smokeless tobacco: Never Substance Use Topics Alcohol use: Never Occupation and work status: Marital status: Children: Vapes nicotine daily Family History: History of multiple sclerosis: No History of autoimmunity: No Current Outpatient Medications: cholecalciferol (VITAMIN D3) 2,000 unit capsule, Take 1 capsule (2,000 Units total) by mouth once aday., Disp: 30 capsule, Rfl: 11 meclizine (ANTIVERT) 25 mg tablet, Take 1 tablet (25 mg total) by mouth 3 times a day as needed fordizziness., Disp: 30 tablet, Rfl: 0 Allergies: Patient has no known allergies. Neurological Examination Vital signs: BP 124/72 (BP Location: Left arm, Patient Position: Sitting) Pulse 87 Temp 36.1 ??C (97 ??F) (Temporal) Resp 16 Ht 1.727 m (5' 8 ) SpO2 99% BMI 28.33 kg/m?? General: No acute distress, well-groomed, appears stated age Head: Normocephalic, atraumatic. Mental Status: Awake, oriented to person, place, time. Normal fund of knowledge. Fluent speech and comprehension. Cranial Nerves: Visual lindsey full to confrontation. PERRL without evidence of APD. EOMI intact today except for mild decrease abduction on full left lateral gaze, denies diplopia in any direction. V1-V3 intact to light touch. Face and nasolabial folds symmetric. Hearing intact to finger rub, palate and tongue midline. Shoulder shrug is full strength bilaterally. Motor Exam: Bulk is normal. Tone is normal. There is no evidence of tremor. Pronator drift negative. Strength (R/L), MRC grading 0-5: Upper extremities: Shoulder abduction 5/5, elbow flexion 5/5, elbow extension 5/5, wrist extensors 5/5, finger extensors 5/5, interossei 5/5 Lower extremities: Hip flexion 5/5, knee flexors 5/5, knee extensors 5/5, dorsiflexors 5/5, plantarflexion 5/5, EHL 5/5 Sensation: Light touch normal in bilateral upper extremities and lower. Vibration is normal at the toes. Pinprick intact throughout. Coordination: Kmilkl-ow-tmza shows no signs of dysmetria. Deep tendon reflexes: (R/L): Brachioradialis 2+/2+, Biceps 2+/2+, Triceps 2+/2+, Patellar 2+/2+ without crossed adduction, Achilles 2+/2+. Toes are mute in response to plantar stimulation. Gait: Normal stride length, bibiana, and arm swing. Able to tandem walk. Lhermitte's: Not assessed EDSS: 2.0 [facility] Functional Systems Scores (FSS): Pyramidal Functions: 1 - Abnormal signs without disability Cerebellar Functions: 0 - Normal Brainstem Functions: 0 - Normal Sensory Function: 0 Bowel and Bladder Function: 0 Visual Function: 0 - Normal Cerebral (or Mental) Functions: 0 - Normal 09/13/2024 12:00 PM 05/22/2025 11:00 AM Antonino Expanded Disability Status Scale EDSS Score 1 9 Hole Peg Test 14.59 13.47 Timed 25-foot walk 4.11 4.22 Symbol Digit Modalities Test (SDMT) 55 54 Studies CSF labs: Previously completed at outside hospital w/ reported elevated igG and and elevated IgG index, positive oligoclonal bands Serum lab workup: 09/24/22 MOG Ab Titer: 1:40 SSA antibody: <1.0 negative DEBBIE: Negative Hep A IgM antibody non reactive Heb B core IgM antibody non reactive Heb B surface antigen non reactive Hep C antibody non reactive JCV negative SSB antibody negative 09/29/22 ANCA negative Proteinase-3 antibody: <1.0 Myeloperoxidase antibody: < 1.0 LFTs: Alk Phos 98, ST 18, ALT 27 Hep B core total AB: non-reactive HIV negative Quant Gold negative Neuroimaging: MRI brain 12/18/22 1. Multiple supratentorial and infratentorial white matter lesions in keeping with patient's known history of multiple sclerosis. Many of which demonstrate enhancement on postcontrast images in keeping with active lesions. 2. Icometrix data as above. Whole brain volume is less than 1 percentile. 3. No acute intracranial infarct or hemorrhage. 02/25/2025 1. Supratentorial and infratentorial white matter lesions are unchanged and compatible with MS plaques. None of the lesions enhance. MRI C spine 12/18/22 1. Mildly expanded appearance of cervical spinal cord with multiple T2/STIR hyperintense nonenhancing lesions extending from the level of craniocervical junction up to C5-C6 intervertebral disc spacein keeping with multiple sclerosis. None of the lesions demonstrate enhancement. 2. No neural foramen or spinal canal stenosis. 02/25/2025: Multiple T2 bright foci within the cervical and thoracic spinal cord are not significantly changed. No new definite lesions, enhancement, or cord expansion. MRI T spine 12/18/22 1. Multiple nonenhancing cord lesions, somewhat suboptimally evaluated given the motion artifact; likely in keeping with multiple sclerosis. 2. No neural foramen or spinal canal stenosis at any level. 02/25/2025: Multiple T2 bright foci within the cervical and thoracic spinal cord are not significantly changed. No new definite lesions, enhancement, or cord expansion. Assessment and Plan Assessment: 24-year-old male diagnosed with MS in [place] in October 2021 after a flulike illness and having motor and sensory deficits in his right lower extremity. MRI of brain and C-spine concerning for demyelinating disease, LP and EEG notable for elevated IgG, positive oligoclonal bands. After 5 days of steroids was continued on dimethyl fumarate. After moving to the and establishing care in the MS clinic, a follow-up MRI showed continued active disease while on dimethyl fumarate, therefore recommendedtransition to Ocrevus. Now status post first Ocrevus infusion and disease is improving/stable. MOG testing was also positive. MOG studies in [place] require higher titers than the patient has, therefore he does not qualify. At this time, Tiffany is without any symptoms on Ocrevus infusions, and ispending interval follow-up MRIs this month. Follow up MRI Brain/C/T spine (post Ocrevus baseline MRIs) completed May 2024 and without any contrast enhancement, but new lesions since May 2023 MRIs, which is to be expected given he had a severe worsening of symptoms in the summer prior to starting Ocrevus. Plan: - Continue Ocrevus infusions - Continue vitamin D - Follow-up in 6 months - Counseled to notify the clinic of any new symptoms or old symptoms as we would want to see him sooner Sincerely, Jolly Jain MD PGY-2 Note About Provider Documentation: If you are the patient named in this chart and are reviewing your medical notes, please note that medical documentation is often written with abbreviations and medical terminology, and directed for other providers who may be involved in your care as well. Documentation is critical to record what has happened, what tests were ordered, and how they are interpretedwith resulting diagnoses. These notes have been made available for patient review, but not specifically written for the patient. Important health information is always given to my patients and clinicinstructions. Please review your After Visit Summary (AVS) and our clinic staff if you have questions. documented in this encounter Plan of Treatment Upcoming Encounters Date Type Department Care Team (Late st Contact Info) Description 09/14/2025 8:45 AM EST Infusion [facility] [address] [place] [phone] Shubham Arnold MD PhD [address] [place] [phone] 11/07/2025 11:00 AM EDT Office Visit [facility] [address] [place] [phone] Addictions Counselor Assistant: Jolly Velásquez MD [address] [place] [phone] documented as of this encounter Visit Diagnoses Diagnosis Multiple sclerosis- Primary documented in this encounter Care Teams Primary Health Care Nurse Relationship Specialty Start Date End Date Alicia Lui MD [address] [place] [id number] PCP - General 09/23/22 documented as of this encounter
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
[2025-06-19 01:42] VITALS: BP 120/74; BP 138/84; PULSE 84; PULSE 94; RESP 16; TEMP 36.8; O2SAT 100; O2SAT 97; BMI 30.4
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
--- OUTSIDE RECORDS SUMMARY | 2025-06-19 03:15 | XMS_ITS | Encounter Summary ---
Author Organization [facility] Address [address] [place] [address] Care Team Providers Care Portrait Photographer Name Role Phone Alicia Lui MD Primary Care Provider [phone] Encounter Details Date Type Department Care Team (Late st Contact Info) Description 09/30/2022 Telephone [facility] [address] [place] [address] Telephone Intake, Staff Social History Tobacco Use [...] Fax over notes to pt pcp office [phone]. * Telephone Encounter - Anita Green - 09/30/2022 1:39 PM EST Nidhi from PCP office call for notes from yesterday's visit. Please fax to [phone]. documented in this encounter Plan of Treatment Upcoming Encounters Date Type Department Care Team (Late st Contact Info) Description 09/14/2025 8:45 AM EST Infusion [facility] Building Infusion [facility] [address] [place] [phone] Shubham Arnold MD PhD [address] [place] [address] 11/07/2025 11:00 AM EDT Office Visit [facility] Multiple Sclerosis Clinic [address] [place] [address] Loss Prevention Consultant: Jolly Velásquez MD [address] [place] [address] documented as of this encounter Visit Diagnoses Not on filedocumented in this encounter Care Teams Portrait Photographer Relationship Specialty Start Date End Date Alicia Lui MD [address] [place] [phone] PCP - General 09/23/22 documented as of this encounter
--- OUTSIDE RECORDS SUMMARY | 2025-06-19 03:15 | XMS_ITS | Clinical Summary ---
Author Organization [facility] Address [address] [place] [address] [place] [address] Phone Care Team Providers Care Wait Staff Name Role Phone Franklyn Espinal MD Primary Care Provider [phone] Allergies No known active allergies Medications topiramate (TOPAMAX) 25 MG tablet Take 25 mg by mouth 2 (two) times a day. Active meclizine (ANTIVERT) 25 mg tablet Take 1 tablet (25 mg total) by mouth 3 (three) times a day as needed. 20 tablet 01/31/2023 Active Social History Tobacco Use Types Packs/Day Years Used Date Smoking Tobacco: Never Assessed Education Answer Date Recorded Are you interested in more education? Not on annetta e 11/20/2022 Are you concerned about learning? Not on file 11/20/2022 No 11/20/2022 No 11/20/2022 Digital Access Answer Date Recorded No 12/21/2022 No 12/21/2022 Reliable internet access at home? Not on file 12/21/2022 Device with a working camera? Not on file Intimate Partner Violence Answer Date R ecorded Are you denied basic needs s uch as food, clothing, or medical care? No 01/31/2023 In the past 12 months have y ou been in a relationship with a person who hurts, threatens, or tries to control you? No 01/31/2023 Are you denied basic needs s uch as food, clothing, or medical care? No 01/31/2023 In the past 12 months have y ou been in a relationship with a person who hurts, threatens, or tries to control you? No 01/31/2023 Sex and Gender Information Value Date Recorded Sex Assigned at Not on file Legal Sex Male 2:37 AM EDT Gender Identity Not on file Sexual Orientation Not on file Last Filed Vital Signs Vital Sign Reading Time Taken Comments Blood Pressure 109/72 01/31/2023 12:48 PM EDT Pulse 82 01/31/2023 12:48 PM EDT Temperature 36.7 C (98 F) 01/31/2023 12:48 PM EDT Respiratory Rate 16 01/31/2023 12:48 PM EDT Oxygen Saturation 98% 01/31/2023 12:48 PM EDT Inhaled Oxygen Concentration - - Weight 68 kg (149 lb 14.6 oz) 01/31/2023 10:25 A M EDT Height 176 cm (5' 9.29 ) 01/31/2023 10:25 AM EDT Body Mass Index 21.95 01/31/2023 10:25 AM EDT Plan of Treatment Not on file Medical Devices Not on file Insurance [employer] Care Teams Wait Staff Relationship Specialty Start Date End Date Franklyn Espinal MD [address] [place] [phone] PCP - General Family Medicine 11/02/22 Additional Source Comments The information contained in this document represents components of the legal health record. It is not the complete legal health record.[facility]
--- OUTSIDE RECORDS SUMMARY | 2025-06-19 03:15 | XMS_ITS | Encounter Summary ---
Author Organization [facility] Address [address] [place] [address] Care Team Providers Care Swift Tender Name Role Phone Alicia Lui MD Primary Care Provider [phone] Encounter Details Date Type Department Care Team (Late st Contact Info) Description 02/04/2023 Orders Only [facility] Neurology Clinic [address] [place] [address] Sirena Bradshaw MD [address] [place] [phone] Social History Tobacco Use Types Packs/Day Years [...] Info) Description 09/14/2025 8:45 AM EST Infusion [facility] Building Infusion Clinic [address] [place] [address] Shubham Arnold MD PhD [address] [place] [address] 11/07/2025 11:00 AM EDT Office Visit [facility] Multiple Sclerosis [facility] [address] [place] [phone] Lifeguard: Jolly Velásquez MD [address] [place] [address] documented as of this encounter Visit Diagnoses Not on filedocumented in this encounter Care Teams Swift Tender Relationship Specialty Start Date End Date Alicia Lui MD [address] [place] [phone] PCP - General 09/23/22 documented as of this encounter
--- OUTSIDE RECORDS SUMMARY | 2025-06-19 03:15 | XMS_ITS | Clinical Summary ---
Author Organization [facility] Address [address] [place] [address] Care Team Providers Care Fermenter Champagne Name Role Phone Alicia Lui MD Primary Care Provider [phone] Allergies No known active allergies Medications meclizine [...] Encounters Date Type Department Care Team Description 05/22/2025 11:00 AM EDT Office Visit [facility] Multiple Sclerosis Clinic [address] [place] [address] Hearing Aid Fitter: Jolly Velásquez MD Multiple sclerosis (Primary Dx) from Last 3 Months Family History Medical History Relation Name Comments No Known Problems Brother No Known Problems Father No Known Problems Mother No Known Problems Sister Relation Name Status Comments Brother Alive Father Alive Mother Alive Sister Alive Social History Tobacco Use Types Packs/Day Years Used Date Smoking Tobacco: Never Smokeless Tobacco: Never Tobacco Cessation:Counseling Given: Not Answered Alcohol Use Standard Drinks/Week Comments Never 0 [...] EDT Inhaled Oxygen Concentration - - Weight 84.5 kg (186 lb 4.6 oz) 03/13/2025 8:36 A M EDT Height 172.7 cm (5' 8 ) 05/22/2025 11:01 AM EDT Body Mass Index 28.33 05/24/2024 11:46 AM EDT Plan of Treatment Upcoming Encounters Date Type Department Care Team (Late st Contact Info) Description 09/14/2025 8:45 AM EST Infusion [facility] Building Infusion Clinic [address] [place] [address] Shubham Arnold MD PhD [address] [place] [address] 11/07/2025 11:00 AM EDT Office Visit [facility] Multiple Sclerosis Clinic [address] [place] [phone] Hearing Aid Fitter: Jolly Velásquez MD [address] [place] [address] Health Maintenance Due Date Last Done Comments Varicella Vaccines (1 of 2 - 13+ 2-dose series) 11/06/2015 HPV Vaccines (1 - Male 3-dos e series) 2017 Hepatitis B Vaccines (1 of 3 - 19+ 3-dose series) 2021 Alcohol/Substance Use Screening 07/25/2024 Depression Screening and Follow-Up 07/25/2024 Social Drivers of Health [place] ual Screening 07/25/2024 DTaP,Tdap,and Td Vaccines (1 - Tdap) 2024 Influenza Vaccine (#1) 2025 COVID-19 Vaccine ( - 2024-2 6 season) 2025 Hepatitis C Screening Completed 09/24/2022 HIV Screening Completed 09/29/2022 Meningococcal Vaccine Aged Out No cheryl supriya eligible based on patient's age to complete this topic Pneumococcal Vaccine: Pediat jordyn (0-5 Years) and At-Risk Patients (6-50 Years) Aged Out No longer eligible b ased on patient's age to complete this topic Procedures * Due to [employer] law, this organization might not be sharing negative HIV tests. Procedure Name Priority Date/Time Associated Diagnosis Comments HEPATITIS PANEL, ACUTE STAT 09/24/2022 4:24 PM EST from Last 3 Months or Most Recently Relevant to Health Maintenance Results * Due to [employer] law, this organization might not be sharing negative HIV tests. * Hepatitis Panel, Acute (09/24/2022 4:24 PM EST) Hepatitis A IgM NON-REACT KAYCE NON-REACT KAYCE 09/25/2022 4:28 PM EST [employer] Hepatitis B Surface Antigen NON-REACT KAYCE NON-REACT KAYCE 09/25/2022 4:28 PM EST [employer] [facility] Hepatitis B Core Antibody NON-REACT KAYCE NON-REACT KAYCE 09/25/2022 4:28 PM EST [employer] [facility] Hepatitis C Antibody NON-REACT KAYCE NON-REACT KAYCE 09/25/2022 4:[address] [email or web address] Signal To Cut-Off <0.02 <1.00 09/25/2022 4:[email or web address] Comment: HCV antibody was non-reactive. There is no laboratory evidence of HCV infection. In most cases, no further action is required. However, if recent HCV exposure is suspected, a test for HCV RNA (test code 98451) is suggested. For additional information please refer to http://[employer]/faq/WZM70p9 (This link is being provided for informational/ educational purposes only.) For additional information, please refer to http://[employer]/faq/EZN938 (This link is being provided for informational/ educational purposes only.) Blood Structure of peripheral vein / Unknown Venipuncture / Unknown 09/24/2022 4:24 PM EST 09/24/2022 4:31 PM EST Narrative [facility] - 09/25/2022 4:28 PM EST [facility] Received Date: Vignesh Cordero MD LAB BLOOD ORDERABLES Final R esult [facility] [address] [facility] [address], [place] [address], [place] [phone] [facility] [address] [facility] [address], [place] [address], from Last 3 Months or Most Recently Relevant to Health Maintenance [place] [place] [address] [employer] Care Teams Fermenter Champagne Relationship Specialty Start Date End Date Alicia Lui MD [address] [place] [address] [phone] PCP - General 09/23/22
[2025-06-19 04:34] VITALS: BP 112/64; PULSE 74; RESP 16; TEMP 36.6; O2SAT 95
[2025-06-19 06:37] VITALS: BP 108/60; PULSE 90; RESP 16; TEMP 36.7; O2SAT 97
[2025-06-19 07:46] VITALS: BP 108/60; PULSE 90; RESP 16; TEMP 36.7; O2SAT 97
== END 2025-06-19 07:58 | disposition home or self-care (01) ==
PROVIDERS: Emergency Provider Emergency Medicine
DX: M54.50 Low back pain, unspecified (principal); M54.6 Pain in thoracic spine; R51.9 Headache, unspecified; V49.49XA Driver injured in collision with other motor vehicles in traffic accident, initial encounter; Y93.9 Activity, unspecified; Y92.9 Unspecified place or not applicable
CPT/HCPCS: 70450; 72125; 96372; 99284; J1885

== ENCOUNTER → 2025-06-19 02:40 | Outpatient (BNV) | payer OTHER, SELFPAY | PROVIDERS: Emergency Provider Emergency Medicine; Visit Provider Radiology Diagnostic Radiology | DX: M54.2 Cervicalgia (principal); V89.2XXA Person injured in unspecified motor-vehicle accident, traffic, initial encounter; Z04.3 Encounter for examination and observation following other accident | CPT/HCPCS: 70450; 72125 ==